=== PATIENT | male | born 1975 | race Caucasian/White ===

== ENCOUNTER 2017-07-03 11:28 | Inpatient (IN) | payer SELFPAY ==
[2017-07-03] MEDS ORDERED: Sodium Chloride 0.9% 1,000 ML IV ONE ×2 (11:51→14:25)
[2017-07-03] MEDS ORDERED: Ketorolac 30 MG/ML SDV IVPUSH ONE (11:54)
[2017-07-03] MEDS ORDERED: Ondansetron 4 MG/2 ML SDV IVPUSH ONE ×2 (11:54→12:57)
[2017-07-03 12:43] LABS: CHLORIDE,CL 107 mmol/L (98-110); SODIUM,NA 138 mmol/L (136-146)
[2017-07-03] MEDS ORDERED: methylPREDNISolone Sodium Succinate 125 MG/2 ML SDV IVPUSH ONE (12:57)
[2017-07-03] MEDS ORDERED: fentaNYL 100 MCG/2 ML SDV IVPUSH ONE (12:57)
--- NOTE | 2017-07-03 14:02 | CT ---
EXAMINATION: CT soft tissue neck without contrast HISTORY: Inability to swallow, dental issues COMPARISON: None TECHNIQUE: Axial CT images obtained through the neck without contrast. Coronal and sagittal reconstr uctions obtained. The patient had a GFR of 20.0. FINDINGS: There is extensive soft tissue prominence along the left aspect of the oropharynx. There i s deviation of the upper airway and notable mass effect along the left aspect of the oropharynx and less so the inferior nasopharynx and superior hypopharynx. The soft tissue prominence appears to ext end from the right mandibular region with a vague 3.2 x 2.3 cm collection just deep to the angle of the mandible. Periapical lucencies are noted within the adjacent maxillary and mandibular molars. Th ere is mild stranding along the left aspect of the face. Mildly enlarged level 1 and level 2 nodes a re noted measuring up to 1.4 cm. The submandibular and parotid glands are otherwise unremarkable. Th e thyroid appears normal. The lung apices are clear. Visualized osseous structures appear normal. Th e visualized paranasal sinuses and mastoid air cells are grossly clear. The orbits and globes are sy mmetric. IMPRESSION: 1. Probable large submandibular abscess likely originating from periapical lucencies within the left maxilla and mandibular molars. However the exact margins of the abscess is difficult to appreciate without contrast. 2. There is prominent mass effect on the oropharynx and airway. 3. Mild left cervical lymphadenopathy, likely reactive.
[2017-07-03] MEDS ORDERED: Piperacillin/Tazobactam 4.5 GM in Sodium Chloride 0.9% 100 ML IV ONE (14:25)
--- NOTE | 2017-07-03 14:58 | EDM.PDOC ---
<Devin Moser - Last Filed: 07/03/17 16:17> ED HPI GENERAL MEDICAL PROBLEM - General Chief Complaint: ENT Problem Stated Complaint: SOLLOWEN THROAT Time Seen by Provider: 07/03/17 12:00 Source of Information: Reports: Patient History Limitations: Reports: No Limitations - History of Present Illness INITIAL COMMENTS - FREE TEXT/NARRATIVE: History of present illness: 42-year-old male presenting with complaints of oral pain inability to swallow. Patient indicates he has known dental problem with anabiotic speak and swallow them indicates he has not been able to eat or drink since yesterday afternoon. Patient is not drooling and he is fully verbal with a non-muffled voice while describing his history. Review of systems: As per history of present illness and below otherwise all systems reviewed and negative. Past medical history: As per history of present illness and as reviewed below otherwise noncontributory. Surgical history: As per history of present illness and as reviewed below otherwise noncontributory. Social history: No reported history of drug or alcohol abuse. Family history: As per history of present illness and as reviewed below otherwise noncontributory. Physical exam: HEENT: Left-sided neck and face with some swelling and pain down into the neck, normocephalic, pupils reactive, negative for conjunctival pallor or scleral icterus, mucous membranes moist, throat clear, neck supple, nontender, trachea midline. Lungs: Clear to auscultation, breath sounds equal bilaterally, chest nontender. Heart: S1S2, regular, negative for clicks, rubs, or JVD. Abdomen: Soft, nondistended, nontender. Negative for masses or hepatosplenomegaly. Negative for costovertebral tenderness. Pelvis: Stable nontender. Genitourinary: Deferred. Rectal: Deferred. Extremities: Atraumatic, negative for cords or calf pain. Neurovascular unremarkable. Neuro: Awake, alert, oriented. Cranial nerves II through XII unremarkable. Cerebellum unremarkable. Motor and sensory unremarkable throughout. Exam nonfocal. Patient cannot open mouth wide patient cannot tolerate by mouth intake See Dr. Hahn's consult note as she saw patient in ER and was unable to aspirate any infection. CMP repeated for evaluation of renal status for potential CT with contrast Diagnostics: [cbc,cmp, lactate, ct] Therapeutics: [IV fluids, Zosyn, Zofran, Dilaudid, soluMedrol ] Impression: [Mandibular abscess with dehydration] Plan: [Consult Dr. Hahn, admit] Definitive disposition and diagnosis as appropriate pending reevaluation and review of above. throat Pain Score (Numeric/FACES): 8 - Related Data Allergies Allergy/AdvReac Type Severity Reaction Status Date / Time morphine Allergy Itching Verified 07/03/17 11:57 Home Meds: Home Meds Acetaminophen/HYDROcodone [[place] 325-7.5 MG] 1 tab PO Q4HR PRN 07/03/17 [History ] Cephalexin 500 mg PO TID 07/03/17 [History] Past Medical History - Past Health History Medical/Surgical History: Denies Medical/Surgical History Social & Family History - Family History Family Medical History: Noncontributory - Tobacco Use Smoking Status *Q: Current Every Day Smoker Years of Tobacco use: 30 Packs/Tins Daily: 1 - Recreational Drug Use Recreational Drug Use: No ED ROS ENT - Review of Systems Review Of Systems: See Below (See history of present illness) ED EXAM, ENT - Physical Exam Exam: See Below (History of present illness) Course - Vital Signs Last Recorded V/S: Last Vital Signs Temp 36.4 C 07/03/17 11:41 Pulse 96 07/03/17 15:56 Resp 14 07/03/17 15:56 BP 126/68 07/03/17 15:56 Pulse Ox 97 07/03/17 15:56 - Orders/Labs/Meds Orders: Medication Orders Acetaminophen (Tylenol) 650 mg PO Q4H PRN PRN Reason: Pain (Mild 1-3)/fever Enoxaparin Sodium (Lovenox) 40 mg SUBCUT DAILY [facility] Last Admin: 07/03/17 16:55 Dose: 40 mg Hydromorphone HCl (Dilaudid) 1 mg IVPUSH Q2H PRN PRN Reason: Pain (severe 7-10) Sodium Chloride (Normal Saline) 1,000 mls @ 125 mls/hr IV ASDIRECTED [facility] Clindamycin Phosphate 600 mg/ (Premix) 50 mls @ 100 mls/hr IV Q6H [facility] Last Admin: 07/03/17 16:53 Dose: 100 mls/hr Ceftriaxone Sodium/Dextrose 1 (gm/ Premix) 50 mls @ 100 mls/hr IV Q24H [facility] Ondansetron HCl (Zofran) 4 mg IVPUSH Q4H PRN PRN Reason: Nausea Labs: Laboratory Tests 07/03/17 07/03/17 07/03/17 Range/Units 12:17 12:17 13:08 WBC 19.04 H (4.0-11.0) K/uL RBC 4.48 L (4.50-5.90) M/uL Hgb 15.5 (13.0-17.0) g/dL Hct 44.1 (38.0-50.0) % MCV 98.4 H (80.0-98.0) fL MCH 34.6 H (27.0-32.0) pg MCHC 35.1 (31.0-37.0) g/dL RDW Std Deviation 47.1 (28.0-62.0) fl RDW Coeff of Pratima 13 (11.0-15.0) % Plt Count 280 (150-400) K/uL MPV 9.60 (7.40-12.00) fL Neut % (Auto) 83.0 H (48.0-80.0) % Lymph % (Auto) 6.4 L (16.0-40.0) % [place] % (Auto) 10.5 (0.0-15.0) % Eos % (Auto) 0.0 (0.0-7.0) % Baso % (Auto) 0.1 (0.0-1.5) % Neut # (Auto) 15.8 H (1.4-5.7) K/uL Lymph # (Auto) 1.2 (0.6-2.4) K/uL [place] # (Auto) 2.0 H (0.0-0.8) K/uL Eos # (Auto) 0.0 (0.0-0.7) K/uL Baso # (Auto) 0.0 (0.0-0.1) K/uL Nucleated RBC % 0.0 /100WBC Nucleated RBCs # 0 K/uL Lactate 0.9 (0.20-2.00) mmol/L Sodium 138 (136-146) mmol/L Potassium 3.7 (3.5-5.1) mmol/L Chloride 107 (98-110) mmol/L Carbon Dioxide 15 L (21-31) mmol/L BUN 31 H (6.0-23.0) mg/dL Creatinine 3.4 H (0.6-1.5) mg/dL Est Cr Clr Drug Dosing TNP Estimated GFR (MDRD) 20.0 ml/min Glucose 86 (60-110) mg/dL Calcium 8.0 L (8.8-10.8) mg/dL Total Bilirubin 0.2 (0.1-1.5) mg/dL AST 17 (5-40) IU/L ALT 15 (8-54) IU/L Alkaline Phosphatase 89 (40-150) Total Protein 7.1 (6.0-8.0) g/dL Albumin 3.4 L (3.5-5.0) g/dL Globulin 3.7 H (2.0-3.5) g/dL Albumin/Globulin Ratio 0.9 L (1.3-2.8) Meds: Medications Generic Name Dose Route Start Last Admin Trade Name Freq PRN Reason Stop Dose Admin Acetaminophen 650 mg 07/03/17 16:11 Tylenol PO Q4H PRN Pain (Mild 1-3)/fever Enoxaparin Sodium 40 mg 07/03/17 16:15 07/03/17 16:55 Lovenox SUBCUT 40 mg DAILY [facility] Administration Hydromorphone HCl 1 mg 07/03/17 16:11 Dilaudid IVPUSH Q2H PRN Pain (severe 7-10) Sodium Chloride 1,000 mls @ 125 mls/hr 07/03/17 16:15 Normal Saline IV ASDIRECTED [facility] Clindamycin Phosphate 600 mg/ 50 mls @ 100 mls/hr 07/03/17 16:15 07/03/17 16: 53 Premix IV 100 mls/hr Q6H [facility] Administration Ceftriaxone Sodium/Dextrose 1 50 mls @ 100 mls/hr 07/03/17 16:15 gm/ Premix IV Q24H [facility] Ondansetron HCl 4 mg 07/03/17 16:11 Zofran IVPUSH Q4H PRN Nausea Discontinued Medications Generic Name Dose Route Start Last Admin Trade Name Freq PRN Reason Stop Dose Admin Fentanyl 50 mcg 07/03/17 12:57 07/03/17 13:13 Sublimaze IVPUSH 07/03/17 12:58 50 mcg ONETIME ONE Administration Hydromorphone HCl 1 mg 07/03/17 15:43 07/03/17 15:52 Dilaudid IVPUSH 07/03/17 15:44 1 mg ONETIME ONE Administration Sodium Chloride 1,000 mls @ 999 mls/hr 07/03/17 11:51 07/03/17 12:09 Normal Saline IV 07/03/17 12:51 999 mls/hr .Bolus ONE Administration Piperacillin Sod/Tazobactam 100 mls @ 100 mls/hr 07/03/17 14:25 07/03/17 14: 31 Sod 4.5 gm/ Sodium Chloride IV 07/03/17 15:24 100 mls/hr ONETIME ONE Administration Sodium Chloride 1,000 mls @ 999 mls/hr 07/03/17 14:25 07/03/17 14:32 Normal Saline IV 07/03/17 15:25 999 mls/hr STAT ONE Administration Metronidazole 500 mg/ Premix 100 mls @ 100 mls/hr 07/03/17 18:00 IV QID [facility] Ketorolac Tromethamine 30 mg 07/03/17 11:54 07/03/17 12:10 Toradol IVPUSH 07/03/17 11:55 30 mg ONETIME ONE Administration Methylprednisolone Sodium Succinate 125 mg 07/03/17 12:57 07/03/17 13:17 Solu-Medrol IVPUSH 07/03/17 12:58 125 mg ONETIME ONE Administration Ondansetron HCl 8 mg 07/03/17 11:54 07/03/17 12:09 Zofran IVPUSH 07/03/17 11:55 8 mg ONETIME ONE Administration Ondansetron HCl 4 mg 07/03/17 12:57 07/03/17 13:15 Zofran IVPUSH 07/03/17 12:58 4 mg ONETIME ONE Administration Departure - Departure Time of Disposition: 16:25 Disposition: Admitted As Inpatient 66 Condition: Good Clinical Impression: Oral abscess - Discharge Information <Karoline Orr - Last Filed: 07/03/17 17:02> ED HPI GENERAL MEDICAL PROBLEM - History of Present Illness INITIAL COMMENTS - FREE TEXT/NARRATIVE: Please note that Dr. Hahn was contacted see the patient in the ER and she felt that the patient should be admitted but to the hospitalist service with her as consult. She also requested that we repeat the labs after IV hydration as she feels that if the patient is not improving he will need a CT scan with contrast. This information was translated to Dr. Avilez by me. Repeat BMP was ordered and will be checked on the floor.
[2017-07-03] MEDS ORDERED: HYDROmorphone 2 MG/ML Syringe IVPUSH ONE (15:43)
[2017-07-03] MEDS ORDERED: Acetaminophen 325 MG Tab PO PRN (16:11)
[2017-07-03] MEDS ORDERED: Ondansetron 4 MG/2 ML SDV IVPUSH PRN (16:11)
[2017-07-03] MEDS: Clindamycin Phosphate in D5W 600 MG in Premix Bag 50 BAG IV SCH ×4 (16:53→21:24)
[2017-07-03] MEDS: Enoxaparin 40 MG/0.4 ML Syringe SUBCUT SCH (16:55)
[2017-07-03] MEDS: Sodium Chloride 0.9% 1,000 ML IV SCH ×2 (17:00→18:55)
--- NOTE | 2017-07-03 17:07 | PCM.CONS ---
H&P History of Present Illness - General Date of Service: 07/03/17 Admit Problem/Dx: Admission Diagnosis/Problem Admission Diagnosis/Problem Neck infection - History of Present Illness Initial Comments - Free Text/Narative: Difficulty swllowing - 1d Difficulty mouth opening - 1 d HPI Patient presented to ER with worsening odynophagia, dysphagia and trismus since earlier today. Over the last 1 week he has developed a left lower dental pain for which he consulted a dentist yesterday. He was prescribed oral antibiotics to resolve inflammation prior to dental extraction next week. Woke today with the above symptoms. He has not been able to swallow his own saliva, voice is muffled. Does Not report any shortness of breath or breathing difficulties. He also reports pain on neck movements. Denies fever. Denies headaches. No history of upper respiratory tract infection. throat Pain Score (Numeric/FACES): 8 - Related Data Allergies/Adverse Reactions: Allergies Allergy/AdvReac Type Severity Reaction Status Date / Time morphine Allergy Itching Verified 07/03/17 11:57 Home Medications: Home Meds Acetaminophen/HYDROcodone [[place] 325-7.5 MG] 1 tab PO Q4HR PRN 07/03/17 [History ] Cephalexin 500 mg PO TID 07/03/17 [History] Past Medical History - Past Health History Medical/Surgical History: Denies Medical/Surgical History Social & Family History - Family History Family Medical History: Noncontributory - Tobacco Use Smoking Status *Q: Current Every Day Smoker Years of Tobacco use: 30 Packs/Tins Daily: 1 - Recreational Drug Use Recreational Drug Use: No H&P Review of Systems - Review of Systems: Review Of Systems: See Below General: Reports: Fatigue HEENT: Reports: Sore Throat Pulmonary: Reports: No Symptoms Cardiovascular: Reports: No Symptoms Gastrointestinal: Reports: No Symptoms Skin: Reports: No Symptoms Psychiatric: Reports: No Symptoms Neurological: Reports: No Symptoms Hematologic/Lymphatic: Reports: No Symptoms Exam - Exam Exam: See Below - Vital Signs Vital Signs: Last Vital Signs Temp 36.4 C 07/03/17 11:41 Pulse 96 07/03/17 15:56 Resp 14 07/03/17 15:56 BP 126/68 07/03/17 15:56 Pulse Ox 97 07/03/17 15:56 Weight: 85.7 kg - Exam General: Alert, Oriented, Cooperative Neck: Other Lungs: Clear to Auscultation Cardiovascular: Regular Rate, Regular Rhythm Skin: Warm, Dry, Intact Neuro Extensive - Mental Status: Alert, Oriented x3, Normal Mood/Affect Neuro Extensive - Motor, Sensory, Reflexes: CN II-XII Intact Physical Exam Comments:: Examination: Trismus = ++ Oral cavitymultiple carious teeth especially the left lower third molar. Gingivitis plus plus. Floor of mouth normal._Bit. Oropharynx: Left peritonsillar edema/bulge present. Posterior pharyngeal wall appears clear. Nose: Normal Ears: Bilateral tympanic membranes intact and middle ear clear Neck: Range of movements restricted by pain. Submental induration present. No fluctuation. Left angle of mandible tenderness present. Some induration also present. Unable to palpate any lymph nodes. Overlying skin in this region is also hyperemic. Remainder of the neck is normal. Trachea is midline. - Patient Data Result Diagrams: 07/03/17 12:17 07/03/17 12:17 Imaging Impressions Last 24 hrs: CT neck - wthout contrast - reviewed by me an also discussed with the Radiologist - ? Phlegmon / developing abscess in the Left masseter space / edema off the masseter muscle with adjacent fat stranding off the masseter space. Hard to further define due to lack of contrast. Consult PN Assessment/Plan (1) Dental caries SNOMED Code(s): 78441928 Code(s): K02.9 - DENTAL CARIES, UNSPECIFIED Current Visit: Yes (2) Gingivitis SNOMED Code(s): 90563007 Code(s): K05.10 - CHRONIC GINGIVITIS, PLAQUE INDUCED Current Visit: Yes (3) Cellulitis of neck SNOMED Code(s): 89278688 Code(s): L03.221 - CELLULITIS OF NECK Current Visit: Yes (4) Cellulitis of parapharyngeal space SNOMED Code(s): 766075022 Code(s): J39.0 - RETROPHARYNGEAL AND PARAPHARYNGEAL ABSCESS Current Visit: Yes Problem List Initiated/Reviewed/Updated: Yes Plan: - For IV clindamycin and Ceftriaxone. - IV fluids and analgesia. - For aspiration of left peritonsillar space - see separate procedure note - If his condition deteriorates to repeat CT, scan of neck / face with contrast after adequate rehydration / following the appropriate protocol to better help delineate the extent of an nature of infection. - To be admitted under hospitalist for observation. Case was discussed with the resident. - Review PRN
--- NOTE | 2017-07-03 17:22 | PCM.PRNOTE ---
- Free Text/Narrative Note: Aspiration of the left peritonsillar space A verbal consent was obtained. Surface anesthesia was obtained with 20% benzocaine spray. Subsequently 1 mail off 2% lidocaine with 1 end 100,000 epinephrine was injected all the area of maximal bulge left peritonsillar space. An 18-gauge needle was used to aspirate - no purulence. This concluded the procedure. Hemostasis was ensured. The patient was instructed not to eat or drink anything for 45 minutes post procedure.
--- NOTE | 2017-07-03 17:42 | PCM.HP ---
<Osman Avilez - Last Filed: 07/03/17 17:37> H&P History of Present Illness - General Date of Service: 07/03/17 Admit Problem/Dx: Admission Diagnosis/Problem Admission Diagnosis/Problem Neck infection Source of Information: Patient History Limitations: Reports: No Limitations - History of Present Illness Initial Comments - Free Text/Narative: 42-year-old male is being admitted with a submandibular abscess. Patient states that he began to notice some swelling on the lower portion of his left jaw approximately one week ago. The swelling has gotten worse and this morning he woke up with increased swelling under his chin down into his throat. He states that the site of swelling is extremely painful rating it as 8/10. He has been afebrile but notes that he is finding it difficult to swallow and feels as though it is harder to breathe. Patient has never had these types of symptoms in the past. He was placed on Keflex and Albin yesterday and states he took 5 tablets of Keflex and that the swelling does not seem to be improved. Patient states that he has not had much oral intake over the last 2 days secondary to the increased swelling and pain with swallowing. Patient denies any other acute concerns including headaches, dizziness, chest pain, palpitations, nausea, vomiting, constipation, diarrhea, abdominal pain, numbness/tingling/weakness in the upper and lower extremities bilaterally. He does have some pain around the left ear but denies any tinnitus. ER course: Patient received a dose of Zosyn while in the emergency room and a 2 L bolus of IV fluids. He was also given a one-time dose of IV Solu-Medrol. Dr. Hahn, ENT , saw the patient and attempted to aspirate the abscess but was only able to obtain blood. Patient did have a soft tissue neck CT which showed a probable large submandibular abscess originating from the left maxilla and mandibular molars. It also showed a prominent mass effect on the oropharynx and airway. There is mild left cervical lymphadenopathy which is most likely reactive. Patient also received a single dose of Dilaudid while in the emergency room for pain relief. Patient does not require supplemental O2 while in the emergency room. throat Pain Score (Numeric/FACES): 8 - Related Data Allergies/Adverse Reactions: Allergies Allergy/AdvReac Type Severity Reaction Status Date / Time morphine Allergy Itching Verified 07/03/17 11:57 Home Medications: Home Meds Acetaminophen/HYDROcodone [Albin 325-7.5 MG] 1 tab PO Q4HR PRN 07/03/17 [History ] Cephalexin 500 mg PO TID 07/03/17 [History] Past Medical History - Past Health History Medical/Surgical History: Denies Medical/Surgical History Social & Family History - Family History Family Medical History: Noncontributory - Tobacco Use Smoking Status *Q: Current Every Day Smoker Years of Tobacco use: 30 Packs/Tins Daily: 1 Used Tobacco, but Quit: No Second Hand Smoke Exposure: Yes - Caffeine Use Caffeine Use: Reports: Coffee, Energy Drinks, Soda, Tea - Alcohol Use Days Per Week of Alcohol Use: 2 Number of Drinks Per Day: 10 Total Drinks Per Week: 20 Date of Last Drink: 06/28/17 - Recreational Drug Use Recreational Drug Use: No H&P Review of Systems - Review of Systems: Review Of Systems: See Below General: Reports: No Symptoms HEENT: Reports: Dysphasia, Sore Throat, Other (Difficulty swallowing. Swelling noted at the lower portion of the left mandible and under the chin down into the throat.) Pulmonary: Reports: No Symptoms Cardiovascular: Reports: No Symptoms Gastrointestinal: Reports: No Symptoms Genitourinary: Reports: No Symptoms Musculoskeletal: Reports: No Symptoms Skin: Reports: No Symptoms Psychiatric: Reports: No Symptoms Neurological: Reports: No Symptoms Hematologic/Lymphatic: Reports: No Symptoms Immunologic: Reports: No Symptoms Exam - Exam Exam: See Below - Vital Signs Vital Signs: Last Vital Signs Temp 97 F 07/03/17 16:11 Pulse 95 07/03/17 16:11 Resp 18 07/03/17 16:11 BP 132/74 07/03/17 16:11 Pulse Ox 94 L 07/03/17 16:11 Weight: 85.7 kg - Exam Quality Assessment: DVT Prophylaxis (scds, Lovenox) General: Alert, Oriented, Cooperative, Mild Distress HEENT: Conjunctiva Clear, Hearing Intact, Other (Difficult to observe the posterior oropharynx as the patient finds it extremity painful to open his mouth. He does have quite a bit of saliva accumulating in the oral cavity.) Neck: Supple, Trachea Midline, Other (Patient does have noticeable swelling just inferior to the left mandible and just under the chin down into the neck. There is extreme tenderness with palpation. No fluctuance is appreciated. These areas are slightly warm to palpation.) Lungs: Clear to Auscultation, Normal Respiratory Effort Cardiovascular: Regular Rate, Regular Rhythm Extremities: Normal Inspection, Normal Range of Motion, Non-Tender, No Pedal Edema, Normal Capillary Refill Peripheral Pulses: 2+: Radial (L), Radial (R), Posterior Tibial (L), Posterior Tibial (R) Skin: Warm, Dry, Intact Neuro Extensive - Mental Status: Alert, Oriented x3, Normal Mood/Affect, Normal Cognition Neuro Extensive - Motor, Sensory, Reflexes: Normal Reflexes Psychiatric: Alert, Normal Affect, Normal Mood - Patient Data Lab Results Last 24 hrs: Laboratory Results - last 24 hr 07/03/17 Range/Units 16:38 Sodium 138 (136-146) mmol/L Potassium 3.8 (3.5-5.1) mmol/L Chloride 110 (98-110) mmol/L Carbon Dioxide 12 L (21-31) mmol/L BUN 33 H (6.0-23.0) mg/dL Creatinine 2.8 H (0.6-1.5) mg/dL Est Cr Clr Drug Dosing 35.49 mL/min Estimated GFR (MDRD) 25.0 ml/min Glucose 105 (60-110) mg/dL Calcium 8.4 L (8.8-10.8) mg/dL Total Bilirubin 0.3 (0.1-1.5) mg/dL AST 22 (5-40) IU/L ALT 16 (8-54) IU/L Alkaline Phosphatase 92 (40-150) Total Protein 7.5 (6.0-8.0) g/dL Albumin 3.5 (3.5-5.0) g/dL Globulin 4.0 H (2.0-3.5) g/dL Albumin/Globulin Ratio 0.9 L (1.3-2.8) Result Diagrams: 07/03/17 12:17 07/03/17 16:38 *Q Meaningful Use (ADM) - VTE *Q VTE Criteria *Q: - Stroke *Q Stroke Criteria *Q: - AMI *Q AMI Criteria *Q: - Problem List (1) Submandibular abscess SNOMED Code(s): 56682910 ICD Code: K12.2 - CELLULITIS AND ABSCESS OF MOUTH Status: Acute Current Visit: Yes (2) Acute renal injury due to hypovolemia SNOMED Code(s): 478857179 ICD Code: N17.9 - ACUTE KIDNEY FAILURE, UNSPECIFIED; E86.1 - HYPOVOLEMIA Status: Acute Current Visit: Yes Problem List Initiated/Reviewed/Updated: Yes Orders Last 24hrs: Active Orders 24 hr Category Date Time Status Patient Status [ADT] Routine ADT 07/03/17 16:11 Active Antiembolic Devices [RC] PER UNIT ROUTINE Care 07/03/17 16:18 Active Height and Weight [RC] DAILY Care 07/03/17 16:11 Active Intake and Output [RC] Q12H Care 07/03/17 16:12 Active Notify Provider Vital Signs [RC] ASDIRECTED Care 07/03/17 16:12 Active Oxygen Therapy [RC] PRN Care 07/03/17 16:11 Active Pulse Oximetry [RC] CONTINUOUS Care 07/03/17 16:12 Active Up With Assistance [RC] ASDIRECTED Care 07/03/17 16:11 Active VTE/DVT Education [RC] PER UNIT ROUTINE Care 07/03/17 16:11 Active Vital Signs [RC] Q4H Care 07/03/17 16:11 Active Regular Diet [DIET] Diet 07/03/17 Dinner Active BASIC METABOLIC PANEL,BMP [CHEM] AM Lab 07/04/17 05:11 Ordered BASIC METABOLIC PANEL,BMP [CHEM] AM Lab 07/05/17 05:11 Ordered BASIC METABOLIC PANEL,BMP [CHEM] AM Lab 07/06/17 05:11 Ordered CBC WITH AUTO DIFF [HEME] AM Lab 07/04/17 05:11 Ordered CBC WITH AUTO DIFF [HEME] AM Lab 07/05/17 05:11 Ordered CBC WITH AUTO DIFF [HEME] AM Lab 07/06/17 05:11 Ordered CULTURE BLOOD [BC] Stat Lab 07/03/17 16:49 Received Acetaminophen [Tylenol] Med 07/03/17 16:11 Active 650 mg PO Q4H PRN Clindamycin Phosphate in D5W [Cleocin in D5W] 600 mg Med 07/03/17 16:15 Active Premix Bag 50 bag IV Q6H Enoxaparin [Lovenox] Med 07/03/17 16:15 Active 40 mg SUBCUT DAILY HYDROmorphone [Dilaudid] Med 07/03/17 16:11 Active 1 mg IVPUSH Q2H PRN Ondansetron [Zofran] Med 07/03/17 16:11 Active 4 mg IVPUSH Q4H PRN Sodium Chloride 0.9% [Normal Saline] 1,000 ml Med 07/03/17 16:15 Active IV ASDIRECTED cefTRIAXone [Rocephin in Dextrose,Iso-Osm 1 GM/50 ML] 1 Med 07/03/17 16:15 Active gm Premix Bag 1 bag IV Q24H Sequential Compression Device [OM.PC] Per Unit Routine Oth 07/03/17 16:13 Ordered Resuscitation Status Routine Resus Stat 07/03/17 16:11 Ordered Medication Orders Acetaminophen (Tylenol) 650 mg PO Q4H PRN PRN Reason: Pain (Mild 1-3)/fever Enoxaparin Sodium (Lovenox) 40 mg SUBCUT DAILY [facility] Last Admin: 07/03/17 16:55 Dose: 40 mg Hydromorphone HCl (Dilaudid) 1 mg IVPUSH Q2H PRN PRN Reason: Pain (severe 7-10) Sodium Chloride (Normal Saline) 1,000 mls @ 125 mls/hr IV ASDIRECTED ODESSA Clindamycin Phosphate 600 mg/ (Premix) 50 mls @ 100 mls/hr IV Q6H [facility] Last Admin: 07/03/17 16:53 Dose: 100 mls/hr Ceftriaxone Sodium/Dextrose 1 (gm/ Premix) 50 mls @ 100 mls/hr IV Q24H ODESSA Ondansetron HCl (Zofran) 4 mg IVPUSH Q4H PRN PRN Reason: Nausea Assessment/Plan Comment:: 42-year-old male admitted with a left-sided submandibular abscess. #1. Submandibular mandibular abscess: -Dr. Hahn, ENT, attempted to aspirate the abscess but was only able to aspirate blood. She has been consulted on the case and will follow the patient throughout admission. -Patient started on IV clindamycin and IV Rocephin. Patient will most likely need a few days of IV antibiotics prior to discharge. -IV Dilaudid available for pain relief. -Patient maintained on a regular diet and will advance as tolerated starting with clear liquids. -Continuous pulse ox has been applied to the patient. -If swelling seems the same in the morning we can consider giving the patient an IV dose of Cipro. #2. Acute kidney injury secondary to dehydration: -Patient is a poor oral intake over the last few days. He'll be started on normal saline at 125 cc/hour. Discharge: 2-4 days pending improvement. <Obed Thomson - Last Filed: 07/03/17 19:37> H&P History of Present Illness - General Admit Problem/Dx: Admission Diagnosis/Problem Admission Diagnosis/Problem Neck infection Exam - Vital Signs Vital Signs: Last Vital Signs Temp 36.1 C 07/03/17 16:11 Pulse 95 07/03/17 16:11 Resp 18 07/03/17 16:11 BP 132/74 07/03/17 16:11 Pulse Ox 94 L 07/03/17 16:11 - Patient Data Lab Results Last 24 hrs: Laboratory Results - last 24 hr 07/03/17 Range/Units 16:38 Sodium 138 (136-146) mmol/L Potassium 3.8 (3.5-5.1) mmol/L Chloride 110 (98-110) mmol/L Carbon Dioxide 12 L (21-31) mmol/L BUN 33 H (6.0-23.0) mg/dL Creatinine 2.8 H (0.6-1.5) mg/dL Est Cr Clr Drug Dosing 35.49 mL/min Estimated GFR (MDRD) 25.0 ml/min Glucose 105 (60-110) mg/dL Calcium 8.4 L (8.8-10.8) mg/dL Total Bilirubin 0.3 (0.1-1.5) mg/dL AST 22 (5-40) IU/L ALT 16 (8-54) IU/L Alkaline Phosphatase 92 (40-150) Total Protein 7.5 (6.0-8.0) g/dL Albumin 3.5 (3.5-5.0) g/dL Globulin 4.0 H (2.0-3.5) g/dL Albumin/Globulin Ratio 0.9 L (1.3-2.8) Result Diagrams: 07/03/17 12:17 07/03/17 16:38 *Q Meaningful Use (ADM) - VTE *Q VTE Criteria *Q: - Stroke *Q Stroke Criteria *Q: - AMI *Q AMI Criteria *Q: Orders Last 24hrs: Active Orders 24 hr Category Date Time Status Patient Status [ADT] Routine ADT 07/03/17 16:11 Active Antiembolic Devices [RC] PER UNIT ROUTINE Care 07/03/17 16:18 Active Height and Weight [RC] DAILY Care 07/03/17 16:11 Active Intake and Output [RC] Q12H Care 07/03/17 16:12 Active Notify Provider Vital Signs [RC] ASDIRECTED Care 07/03/17 16:12 Active Oxygen Therapy [RC] PRN Care 07/03/17 16:11 Active Pulse Oximetry [RC] CONTINUOUS Care 07/03/17 16:12 Inactive Up With Assistance [RC] ASDIRECTED Care 07/03/17 16:11 Active VTE/DVT Education [RC] PER UNIT ROUTINE Care 07/03/17 16:11 Active Vital Signs [RC] Q4H Care 07/03/17 16:11 Active Regular Diet [DIET] Diet 07/03/17 Dinner Active BASIC METABOLIC PANEL,BMP [CHEM] AM Lab 07/04/17 05:11 Ordered BASIC METABOLIC PANEL,BMP [CHEM] AM Lab 07/05/17 05:11 Ordered BASIC METABOLIC PANEL,BMP [CHEM] AM Lab 07/06/17 05:11 Ordered CBC WITH AUTO DIFF [HEME] AM Lab 07/04/17 05:11 Ordered CBC WITH AUTO DIFF [HEME] AM Lab 07/05/17 05:11 Ordered CBC WITH AUTO DIFF [HEME] AM Lab 07/06/17 05:11 Ordered CULTURE BLOOD [BC] Stat Lab 07/03/17 16:49 Received Acetaminophen [Tylenol] Med 07/03/17 16:11 Active 650 mg PO Q4H PRN Clindamycin Phosphate in D5W [Cleocin in D5W] 600 mg Med 07/03/17 16:15 Active Premix Bag 50 bag IV Q6H Enoxaparin [Lovenox] Med 07/03/17 16:15 Active 40 mg SUBCUT DAILY HYDROmorphone [Dilaudid] Med 07/03/17 16:11 Active 1 mg IVPUSH Q2H PRN Ondansetron [Zofran] Med 07/03/17 16:11 Active 4 mg IVPUSH Q4H PRN Sodium Chloride 0.9% [Normal Saline] 1,000 ml Med 07/03/17 16:15 Active IV ASDIRECTED cefTRIAXone [Rocephin in Dextrose,Iso-Osm 1 GM/50 ML] 1 Med 07/03/17 16:15 Active gm Premix Bag 1 bag IV Q24H Sequential Compression Device [OM.PC] Per Unit Routine Oth 07/03/17 16:13 Ordered Resuscitation Status Routine Resus Stat 07/03/17 16:11 Ordered Medication Orders Acetaminophen (Tylenol) 650 mg PO Q4H PRN PRN Reason: Pain (Mild 1-3)/fever Enoxaparin Sodium (Lovenox) 40 mg SUBCUT DAILY [facility] Last Admin: 07/03/17 16:55 Dose: 40 mg Hydromorphone HCl (Dilaudid) 1 mg IVPUSH Q2H PRN PRN Reason: Pain (severe 7-10) Sodium Chloride (Normal Saline) 1,000 mls @ 125 mls/hr IV ASDIRECTED [facility] Last Admin: 07/03/17 17:00 Dose: 125 mls/hr Clindamycin Phosphate 600 mg/ (Premix) 50 mls @ 100 mls/hr IV Q6H [facility] Last Admin: 07/03/17 16:53 Dose: 100 mls/hr Ceftriaxone Sodium/Dextrose 1 (gm/ Premix) 50 mls @ 100 mls/hr IV Q24H [facility] Last Admin: 07/03/17 18:38 Dose: 100 mls/hr Ondansetron HCl (Zofran) 4 mg IVPUSH Q4H PRN PRN Reason: Nausea - Free Text/Narrative Note: I have seen this patient, have reviewed his orders and lab results, and I concur with the care Dr. Avilez has given.
[2017-07-03] MEDS ORDERED: metroNIDAZOLE/Normal Saline 500 MG in Premix Bag 1 BAG IV SCH (18:00)
[2017-07-03] MEDS: cefTRIAXone 1 GM in Premix Bag 1 BAG IV SCH (18:38)
[2017-07-03] MEDS: HYDROmorphone 2 MG/ML Syringe IVPUSH PRN (21:21)
[2017-07-04] MEDS: Sodium Chloride 0.9% 1,000 ML IV SCH ×3 (02:30→20:19)
[2017-07-04] MEDS: Clindamycin Phosphate in D5W 600 MG in Premix Bag 50 BAG IV SCH ×10 (04:29→22:13)
[2017-07-04] MEDS: HYDROmorphone 2 MG/ML Syringe IVPUSH PRN ×6 (05:03→19:25)
[2017-07-04] MEDS: Enoxaparin 40 MG/0.4 ML Syringe SUBCUT SCH (09:55)
[2017-07-04] MEDS ORDERED: Pantoprazole 40 MG in Sodium Chloride 0.9% 10 ML IVPUSH ONE ×3 (10:14→11:30)
--- NOTE | 2017-07-04 10:51 | PCM.PN ---
<Osman Avilez - Last Filed: 07/04/17 10:52> - General Info Date of Service: 07/04/17 Admission Dx/Problem (Free Text): Admission Diagnosis/Problem Admission Diagnosis/Problem Neck infection Subjective Update: Patient is doing well this morning. He states that he is swallowing much easier and is able to tolerate clear liquids. He also notes that his breathing is much improved. He still notes swelling inferior to the left jaw line and underneath his chin but the area is not as warm to palpation. He also notes that he is able to breathe much easier. Pain is improved and he is requiring pain medications occasionally for pain relief. Patient does note that he has some GERD. He does not take anything for this. Patient denies any other acute concerns including headache, dizziness, chest pain, palpitations, shortness of breath wheezing, cough, abdominal pain, nausea vomiting, constipation, diarrhea. Functional Status: Reports: Pain Controlled, Tolerating Diet, Ambulating, Urinating - Patient Data Vitals - Most Recent: Last Vital Signs Temp 98.6 F 07/04/17 08:00 Pulse 85 07/04/17 08:00 Resp 16 07/04/17 08:00 BP 103/60 07/04/17 08:00 Pulse Ox 96 07/04/17 08:00 Weight - Most Recent: 85.7 kg I&O - Last 24 Hours: Intake & Output 07/03/17 07/04/17 07/04/17 22:59 06:59 14:59 Intake Total 1150 2268 Output Total 1500 Balance 1150 768 Lab Results Last 24 Hours: Laboratory Results - last 24 hr 07/03/17 07/04/17 07/04/17 Range/Units 16:38 06:00 06:00 WBC 20.78 H (4.0-11.0) K/uL RBC 4.06 L (4.50-5.90) M/uL Hgb 13.7 (13.0-17.0) g/dL Hct 39.1 (38.0-50.0) % MCV 96.3 (80.0-98.0) fL MCH 33.7 H (27.0-32.0) pg MCHC 35.0 (31.0-37.0) g/dL RDW Std Deviation 45.7 (28.0-62.0) fl RDW Coeff of Pratima 13 (11.0-15.0) % Plt Count 293 (150-400) K/uL MPV 9.50 (7.40-12.00) fL Neut % (Auto) 87.2 H (48.0-80.0) % Lymph % (Auto) 5.0 L (16.0-40.0) % [place] % (Auto) 7.7 (0.0-15.0) % Eos % (Auto) 0.0 (0.0-7.0) % Baso % (Auto) 0.1 (0.0-1.5) % Neut # (Auto) 18.1 H (1.4-5.7) K/uL Lymph # (Auto) 1.0 (0.6-2.4) K/uL [place] # (Auto) 1.6 H (0.0-0.8) K/uL Eos # (Auto) 0.0 (0.0-0.7) K/uL Baso # (Auto) 0.0 (0.0-0.1) K/uL Nucleated RBC % 0.0 /100WBC Nucleated RBCs # 0 K/uL Sodium 138 135 L (136-146) mmol/L Potassium 3.8 3.5 (3.5-5.1) mmol/L Chloride 110 109 (98-110) mmol/L Carbon Dioxide 12 L 16 L (21-31) mmol/L BUN 33 H 29 H (6.0-23.0) mg/dL Creatinine 2.8 H 1.9 H (0.6-1.5) mg/dL Est Cr Clr Drug Dosing 35.49 52.30 mL/min Estimated GFR (MDRD) 25.0 39.1 ml/min Glucose 105 107 (60-110) mg/dL Calcium 8.4 L 8.2 L (8.8-10.8) mg/dL Total Bilirubin 0.3 (0.1-1.5) mg/dL AST 22 (5-40) IU/L ALT 16 (8-54) IU/L Alkaline Phosphatase 92 (40-150) Total Protein 7.5 (6.0-8.0) g/dL Albumin 3.5 (3.5-5.0) g/dL Globulin 4.0 H (2.0-3.5) g/dL Albumin/Globulin Ratio 0.9 L (1.3-2.8) Med Orders - Current: Current Medications Acetaminophen (Tylenol) 650 mg PO Q4H PRN PRN Reason: Pain (Mild 1-3)/fever Enoxaparin Sodium (Lovenox) 40 mg SUBCUT DAILY [facility] Last Admin: 07/04/17 09:55 Dose: 40 mg Hydromorphone HCl (Dilaudid) 1 mg IVPUSH Q2H PRN PRN Reason: Pain (severe 7-10) Last Admin: 07/04/17 09:52 Dose: 1 mg Sodium Chloride (Normal Saline) 1,000 mls @ 125 mls/hr IV ASDIRECTED [facility] Last Admin: 07/04/17 09:55 Dose: 125 mls/hr Clindamycin Phosphate 600 mg/ (Premix) 50 mls @ 100 mls/hr IV Q6H [facility] Last Admin: 07/04/17 10:33 Dose: 100 mls/hr Ceftriaxone Sodium/Dextrose 1 (gm/ Premix) 50 mls @ 100 mls/hr IV Q24H [facility] Last Admin: 07/03/17 18:38 Dose: 100 mls/hr Pantoprazole Sodium 40 mg/ (Sodium Chloride) 10 mls @ 300 mls/hr IVPUSH DAILY [facility] Ondansetron HCl (Zofran) 4 mg IVPUSH Q4H PRN PRN Reason: Nausea Discontinued Medications Fentanyl (Sublimaze) 50 mcg IVPUSH ONETIME ONE Stop: 07/03/17 12:58 Last Admin: 07/03/17 13:13 Dose: 50 mcg Hydromorphone HCl (Dilaudid) 1 mg IVPUSH ONETIME ONE Stop: 07/03/17 15:44 Last Admin: 07/03/17 15:52 Dose: 1 mg Sodium Chloride (Normal Saline) 1,000 mls @ 999 mls/hr IV .Bolus ONE Stop: 07/03/17 12:51 Last Admin: 07/03/17 12:09 Dose: 999 mls/hr Piperacillin Sod/Tazobactam (Sod 4.5 gm/ Sodium Chloride) 100 mls @ 100 mls/hr IV ONETIME ONE Stop: 07/03/17 15:24 Last Admin: 07/03/17 14:31 Dose: 100 mls/hr Sodium Chloride (Normal Saline) 1,000 mls @ 999 mls/hr IV STAT ONE Stop: 07/03/17 15:25 Last Admin: 07/03/17 14:32 Dose: 999 mls/hr Metronidazole 500 mg/ Premix 100 mls @ 100 mls/hr IV QID ODESSA Pantoprazole Sodium 40 mg/ (Sodium Chloride) 10 mls @ 300 mls/hr IVPUSH NOW ONE Stop: 07/04/17 10:15 Pantoprazole Sodium 40 mg/ (Sodium Chloride) 10 mls @ 300 mls/hr IVPUSH NOW ONE Stop: 07/04/17 10:31 Ketorolac Tromethamine (Toradol) 30 mg IVPUSH ONETIME ONE Stop: 07/03/17 11:55 Last Admin: 07/03/17 12:10 Dose: 30 mg Methylprednisolone Sodium Succinate (Solu-Medrol) 125 mg IVPUSH ONETIME ONE Stop: 07/03/17 12:58 Last Admin: 07/03/17 13:17 Dose: 125 mg Ondansetron HCl (Zofran) 8 mg IVPUSH ONETIME ONE Stop: 07/03/17 11:55 Last Admin: 07/03/17 12:09 Dose: 8 mg Ondansetron HCl (Zofran) 4 mg IVPUSH ONETIME ONE Stop: 07/03/17 12:58 Last Admin: 07/03/17 13:15 Dose: 4 mg - Exam Quality Assessment: DVT Prophylaxis (Lovenox, sequential compression devices) General: Alert, Oriented, Cooperative, No Acute Distress HEENT: Other (Patient's voice is not as muffled this morning and he appears to be swallowing much easier.) Neck: Supple, Other (Area of swelling noted inferior to the left jawline and underneath the chin. The area is not as warm to palpation this morning and does not seem to be as swollen.) Lungs: Clear to Auscultation, Normal Respiratory Effort Cardiovascular: Regular Rate, Regular Rhythm GI/Abdominal Exam: Normal Bowel Sounds, Soft, Non-Tender, No Organomegaly, No Distention, No Abnormal Bruit, No Mass Extremities: Normal Inspection, Normal Range of Motion, Non-Tender, No Pedal Edema, Normal Capillary Refill Peripheral Pulses: 2+: Radial (L), Radial (R), Posterior Tibial (L), Posterior Tibial (R) Skin: Warm, Dry, Intact, Other (Area of swelling on the left side of the neck and underneath the chin does not appear as warm to palpation and not as erythematous.) Wound/Incisions: Healing Well Neurological: No New Focal Deficit Psy/Mental Status: Alert, Normal Affect, Normal Mood - Problem List & Annotations (1) Submandibular abscess SNOMED Code(s): 16791641 Code(s): K12.2 - CELLULITIS AND ABSCESS OF MOUTH Status: Acute Current Visit: Yes (2) Acute renal injury due to hypovolemia SNOMED Code(s): 067026965 Code(s): N17.9 - ACUTE KIDNEY FAILURE, UNSPECIFIED; E86.1 - HYPOVOLEMIA Status: Acute Current Visit: Yes - Problem List Review Problem List Initiated/Reviewed/Updated: Yes - My Orders Last 24 Hours: My Active Orders 07/03/17 16:11 Patient Status [ADT] Routine Height and Weight [RC] DAILY Oxygen Therapy [RC] PRN Up With Assistance [RC] ASDIRECTED VTE/DVT Education [RC] PER UNIT ROUTINE Vital Signs [RC] Q4H Acetaminophen [Tylenol] 650 mg PO Q4H PRN HYDROmorphone [Dilaudid] 1 mg IVPUSH Q2H PRN Ondansetron [Zofran] 4 mg IVPUSH Q4H PRN Resuscitation Status Routine 07/03/17 16:12 Intake and Output [RC] Q12H Notify Provider Vital Signs [RC] ASDIRECTED Pulse Oximetry [RC] CONTINUOUS 07/03/17 16:13 Sequential Compression Device [OM.PC] Per Unit Routine 07/03/17 16:15 Clindamycin Phosphate in D5W [Cleocin in D5W] 600 mg Premix Bag 50 bag IV Q6H Enoxaparin [Lovenox] 40 mg SUBCUT DAILY Sodium Chloride 0.9% [Normal Saline] 1,000 ml IV ASDIRECTED cefTRIAXone [Rocephin in Dextrose,Iso-Osm 1 GM/50 ML] 1 gm Premix Bag 1 bag IV Q24H 07/03/17 16:18 Antiembolic Devices [RC] PER UNIT ROUTINE 07/03/17 16:49 CULTURE BLOOD [BC] Stat 07/03/17 Dinner Regular Diet [DIET] 07/05/17 05:11 BASIC METABOLIC PANEL,BMP [CHEM] AM CBC WITH AUTO DIFF [HEME] AM 07/05/17 09:00 Pantoprazole [ProTONIX IV] 40 mg Sodium Chloride 0.9% [Normal Saline] 10 ml IVPUSH DAILY 07/06/17 05:11 BASIC METABOLIC PANEL,BMP [CHEM] AM CBC WITH AUTO DIFF [HEME] AM - Plan Plan:: 42-year-old male admitted with a left-sided submandibular abscess. #1. Submandibular mandibular abscess: -Dr. Hahn, ENT, we'll continue to follow the patient throughout admission. -Continue IV clindamycin and Rocephin. White blood cell count did increase slightly from 19,000-21,000. We'll get a repeat CBC in the morning. We do not want to get a head and neck CT with contrast as the patient has poor kidney function secondary to dehydration. If his kidney function improves and his white blood cell count continues to increase we can consider getting a CT. Clinically, the patient looks much better this morning. -IV Dilaudid available for pain relief. -Patient continue to advance his diet as tolerated. #2. Acute kidney injury secondary to dehydration: -BUN/creatinine are improving. Continue with normal saline at 125 cc/hour. Discharge: 2-4 days pending improvement. <Obed Thomson - Last Filed: 07/04/17 12:31> - Patient Data Vitals - Most Recent: Last Vital Signs Temp 37.0 C 07/04/17 08:00 Pulse 85 07/04/17 08:00 Resp 16 07/04/17 08:00 BP 103/60 07/04/17 08:00 Pulse Ox 96 07/04/17 08:00 I&O - Last 24 Hours: Intake & Output 07/03/17 07/04/17 07/04/17 22:59 06:59 14:59 Intake Total 1150 2268 Output Total 1500 Balance 1150 768 Lab Results Last 24 Hours: Laboratory Results - last 24 hr 07/03/17 07/04/17 07/04/17 Range/Units 16:38 06:00 06:00 WBC 20.78 H (4.0-11.0) K/uL RBC 4.06 L (4.50-5.90) M/uL Hgb 13.7 (13.0-17.0) g/dL Hct 39.1 (38.0-50.0) % MCV 96.3 (80.0-98.0) fL MCH 33.7 H (27.0-32.0) pg MCHC 35.0 (31.0-37.0) g/dL RDW Std Deviation 45.7 (28.0-62.0) fl RDW Coeff of Pratima 13 (11.0-15.0) % Plt Count 293 (150-400) K/uL MPV 9.50 (7.40-12.00) fL Neut % (Auto) 87.2 H (48.0-80.0) % Lymph % (Auto) 5.0 L (16.0-40.0) % [place] % (Auto) 7.7 (0.0-15.0) % Eos % (Auto) 0.0 (0.0-7.0) % Baso % (Auto) 0.1 (0.0-1.5) % Neut # (Auto) 18.1 H (1.4-5.7) K/uL Lymph # (Auto) 1.0 (0.6-2.4) K/uL [place] # (Auto) 1.6 H (0.0-0.8) K/uL Eos # (Auto) 0.0 (0.0-0.7) K/uL Baso # (Auto) 0.0 (0.0-0.1) K/uL Nucleated RBC % 0.0 /100WBC Nucleated RBCs # 0 K/uL Sodium 138 135 L (136-146) mmol/L Potassium 3.8 3.5 (3.5-5.1) mmol/L Chloride 110 109 (98-110) mmol/L Carbon Dioxide 12 L 16 L (21-31) mmol/L BUN 33 H 29 H (6.0-23.0) mg/dL Creatinine 2.8 H 1.9 H (0.6-1.5) mg/dL Est Cr Clr Drug Dosing 35.49 52.30 mL/min Estimated GFR (MDRD) 25.0 39.1 ml/min Glucose 105 107 (60-110) mg/dL Calcium 8.4 L 8.2 L (8.8-10.8) mg/dL Total Bilirubin 0.3 (0.1-1.5) mg/dL AST 22 (5-40) IU/L ALT 16 (8-54) IU/L Alkaline Phosphatase 92 (40-150) Total Protein 7.5 (6.0-8.0) g/dL Albumin 3.5 (3.5-5.0) g/dL Globulin 4.0 H (2.0-3.5) g/dL Albumin/Globulin Ratio 0.9 L (1.3-2.8) Med Orders - Current: Current Medications Acetaminophen (Tylenol) 650 mg PO Q4H PRN PRN Reason: Pain (Mild 1-3)/fever Enoxaparin Sodium (Lovenox) 40 mg SUBCUT DAILY [facility] Last Admin: 07/04/17 09:55 Dose: 40 mg Hydromorphone HCl (Dilaudid) 1 mg IVPUSH Q2H PRN PRN Reason: Pain (severe 7-10) Last Admin: 07/04/17 12:19 Dose: 1 mg Sodium Chloride (Normal Saline) 1,000 mls @ 125 mls/hr IV ASDIRECTED [facility] Last Admin: 07/04/17 09:55 Dose: 125 mls/hr Clindamycin Phosphate 600 mg/ (Premix) 50 mls @ 100 mls/hr IV Q6H [facility] Last Admin: 07/04/17 10:33 Dose: 100 mls/hr Ceftriaxone Sodium/Dextrose 1 (gm/ Premix) 50 mls @ 100 mls/hr IV Q24H [facility] Last Admin: 07/03/17 18:38 Dose: 100 mls/hr Pantoprazole Sodium 40 mg/ (Sodium Chloride) 10 mls @ 300 mls/hr IVPUSH DAILY [facility] Ondansetron HCl (Zofran) 4 mg IVPUSH Q4H PRN PRN Reason: Nausea Discontinued Medications Fentanyl (Sublimaze) 50 mcg IVPUSH ONETIME ONE Stop: 07/03/17 12:58 Last Admin: 07/03/17 13:13 Dose: 50 mcg Hydromorphone HCl (Dilaudid) 1 mg IVPUSH ONETIME ONE Stop: 07/03/17 15:44 Last Admin: 07/03/17 15:52 Dose: 1 mg Sodium Chloride (Normal Saline) 1,000 mls @ 999 mls/hr IV .Bolus ONE Stop: 07/03/17 12:51 Last Admin: 07/03/17 12:09 Dose: 999 mls/hr Piperacillin Sod/Tazobactam (Sod 4.5 gm/ Sodium Chloride) 100 mls @ 100 mls/hr IV ONETIME ONE Stop: 07/03/17 15:24 Last Admin: 07/03/17 14:31 Dose: 100 mls/hr Sodium Chloride (Normal Saline) 1,000 mls @ 999 mls/hr IV STAT ONE Stop: 07/03/17 15:25 Last Admin: 07/03/17 14:32 Dose: 999 mls/hr Metronidazole 500 mg/ Premix 100 mls @ 100 mls/hr IV QID ODESSA Pantoprazole Sodium 40 mg/ (Sodium Chloride) 10 mls @ 300 mls/hr IVPUSH NOW ONE Stop: 07/04/17 10:15 Last Admin: 07/04/17 11:24 Dose: Not Given Pantoprazole Sodium 40 mg/ (Sodium Chloride) 10 mls @ 300 mls/hr IVPUSH NOW ONE Stop: 07/04/17 10:31 Last Admin: 07/04/17 11:30 Dose: Not Given Pantoprazole Sodium 40 mg/ (Sodium Chloride) 10 mls @ 300 mls/hr IVPUSH NOW ONE Stop: 07/04/17 11:31 Last Admin: 07/04/17 11:29 Dose: 300 mls/hr Ketorolac Tromethamine (Toradol) 30 mg IVPUSH ONETIME ONE Stop: 07/03/17 11:55 Last Admin: 07/03/17 12:10 Dose: 30 mg Methylprednisolone Sodium Succinate (Solu-Medrol) 125 mg IVPUSH ONETIME ONE Stop: 07/03/17 12:58 Last Admin: 07/03/17 13:17 Dose: 125 mg Ondansetron HCl (Zofran) 8 mg IVPUSH ONETIME ONE Stop: 07/03/17 11:55 Last Admin: 07/03/17 12:09 Dose: 8 mg Ondansetron HCl (Zofran) 4 mg IVPUSH ONETIME ONE Stop: 07/03/17 12:58 Last Admin: 07/03/17 13:15 Dose: 4 mg - Free Text/Narrative Note: Dr. Thomson: I have examined this patient, looked at his data and have discussed his care with Dr. Avilez. I agree with the assessments and plan. Please note that the plan line saying "Dr Hahn ENT we'll" should be corrected to "Dr. Hahn ENT will"
[2017-07-04] MEDS: cefTRIAXone 1 GM in Premix Bag 1 BAG IV SCH (15:20)
[2017-07-04] MEDS ORDERED: methylPREDNISolone Sodium Succinate 125 MG/2 ML SDV IVPUSH ONE (16:11)
--- NOTE | 2017-07-04 18:49 | PCM.CONSN ---
- General Info Date of Service: 07/04/17 - Review of Systems Systems Review Comment:: Since yesterday - pain and external neck swelling improved ++ Mouth opening improved Neck movements improved No SOB; voice improved Is able to swallow semi solids - Patient Data Vitals - Most Recent: Last Vital Signs Temp 37.5 C 07/04/17 16:00 Pulse 91 07/04/17 16:00 Resp 16 07/04/17 16:00 BP 112/73 07/04/17 16:00 Pulse Ox 95 07/04/17 16:11 Weight - Most Recent: 87.407 kg I&O - Last 24 Hours: Intake & Output 07/04/17 07/04/17 07/04/17 06:59 14:59 22:59 Intake Total 2268 900 Output Total 1500 600 Balance 768 300 Lab Results Last 24 Hours: Laboratory Results - last 24 hr 07/04/17 07/04/17 Range/Units 06:00 06:00 WBC 20.78 H (4.0-11.0) K/uL RBC 4.06 L (4.50-5.90) M/uL Hgb 13.7 (13.0-17.0) g/dL Hct 39.1 (38.0-50.0) % MCV 96.3 (80.0-98.0) fL MCH 33.7 H (27.0-32.0) pg MCHC 35.0 (31.0-37.0) g/dL RDW Std Deviation 45.7 (28.0-62.0) fl RDW Coeff of Pratima 13 (11.0-15.0) % Plt Count 293 (150-400) K/uL MPV 9.50 (7.40-12.00) fL Neut % (Auto) 87.2 H (48.0-80.0) % Lymph % (Auto) 5.0 L (16.0-40.0) % [place] % (Auto) 7.7 (0.0-15.0) % Eos % (Auto) 0.0 (0.0-7.0) % Baso % (Auto) 0.1 (0.0-1.5) % Neut # (Auto) 18.1 H (1.4-5.7) K/uL Lymph # (Auto) 1.0 (0.6-2.4) K/uL [place] # (Auto) 1.6 H (0.0-0.8) K/uL Eos # (Auto) 0.0 (0.0-0.7) K/uL Baso # (Auto) 0.0 (0.0-0.1) K/uL Nucleated RBC % 0.0 /100WBC Nucleated RBCs # 0 K/uL Sodium 135 L (136-146) mmol/L Potassium 3.5 (3.5-5.1) mmol/L Chloride 109 (98-110) mmol/L Carbon Dioxide 16 L (21-31) mmol/L BUN 29 H (6.0-23.0) mg/dL Creatinine 1.9 H (0.6-1.5) mg/dL Est Cr Clr Drug Dosing 52.30 mL/min Estimated GFR (MDRD) 39.1 ml/min Glucose 107 (60-110) mg/dL Calcium 8.2 L (8.8-10.8) mg/dL Darshan Results Last 24 Hours: Microbiology 07/03/17 16:49 Aerobic Blood Culture - Preliminary Blood NO GROWTH AFTER 1 DAY Anaerobic Blood Culture - Preliminary NO GROWTH AFTER 1 DAY Med Orders - Current: Current Medications Acetaminophen (Tylenol) 650 mg PO Q4H PRN PRN Reason: Pain (Mild 1-3)/fever Enoxaparin Sodium (Lovenox) 40 mg SUBCUT DAILY [facility] Last Admin: 07/04/17 09:55 Dose: 40 mg Hydromorphone HCl (Dilaudid) 1 mg IVPUSH Q2H PRN PRN Reason: Pain (severe 7-10) Last Admin: 07/04/17 17:20 Dose: 1 mg Sodium Chloride (Normal Saline) 1,000 mls @ 125 mls/hr IV ASDIRECTED [facility] Last Admin: 07/04/17 09:55 Dose: 125 mls/hr Clindamycin Phosphate 600 mg/ (Premix) 50 mls @ 100 mls/hr IV Q6H [facility] Last Admin: 07/04/17 15:54 Dose: 100 mls/hr Ceftriaxone Sodium/Dextrose 1 (gm/ Premix) 50 mls @ 100 mls/hr IV Q24H [facility] Last Admin: 07/04/17 15:20 Dose: 100 mls/hr Pantoprazole Sodium 40 mg/ (Sodium Chloride) 10 mls @ 300 mls/hr IVPUSH DAILY [facility] Ondansetron HCl (Zofran) 4 mg IVPUSH Q4H PRN PRN Reason: Nausea Discontinued Medications Fentanyl (Sublimaze) 50 mcg IVPUSH ONETIME ONE Stop: 07/03/17 12:58 Last Admin: 07/03/17 13:13 Dose: 50 mcg Hydromorphone HCl (Dilaudid) 1 mg IVPUSH ONETIME ONE Stop: 07/03/17 15:44 Last Admin: 07/03/17 15:52 Dose: 1 mg Sodium Chloride (Normal Saline) 1,000 mls @ 999 mls/hr IV .Bolus ONE Stop: 07/03/17 12:51 Last Admin: 07/03/17 12:09 Dose: 999 mls/hr Piperacillin Sod/Tazobactam (Sod 4.5 gm/ Sodium Chloride) 100 mls @ 100 mls/hr IV ONETIME ONE Stop: 07/03/17 15:24 Last Admin: 07/03/17 14:31 Dose: 100 mls/hr Sodium Chloride (Normal Saline) 1,000 mls @ 999 mls/hr IV STAT ONE Stop: 07/03/17 15:25 Last Admin: 07/03/17 14:32 Dose: 999 mls/hr Metronidazole 500 mg/ Premix 100 mls @ 100 mls/hr IV QID [facility]DES[facility] Pantoprazole Sodium 40 mg/ (Sodium Chloride) 10 mls @ 300 mls/hr IVPUSH NOW ONE Stop: 07/04/17 10:15 Last Admin: 07/04/17 11:24 Dose: Not Given Pantoprazole Sodium 40 mg/ (Sodium Chloride) 10 mls @ 300 mls/hr IVPUSH NOW ONE Stop: 07/04/17 10:31 Last Admin: 07/04/17 11:30 Dose: Not Given Pantoprazole Sodium 40 mg/ (Sodium Chloride) 10 mls @ 300 mls/hr IVPUSH NOW ONE Stop: 07/04/17 11:31 Last Admin: 07/04/17 11:29 Dose: 300 mls/hr Ketorolac Tromethamine (Toradol) 30 mg IVPUSH ONETIME ONE Stop: 07/03/17 11:55 Last Admin: 07/03/17 12:10 Dose: 30 mg Methylprednisolone Sodium Succinate (Solu-Medrol) 125 mg IVPUSH ONETIME ONE Stop: 07/03/17 12:58 Last Admin: 07/03/17 13:17 Dose: 125 mg Methylprednisolone Sodium Succinate (Solu-Medrol) 125 mg IVPUSH ONETIME ONE Stop: 07/04/17 16:12 Last Admin: 07/04/17 16:27 Dose: 125 mg Ondansetron HCl (Zofran) 8 mg IVPUSH ONETIME ONE Stop: 07/03/17 11:55 Last Admin: 07/03/17 12:09 Dose: 8 mg Ondansetron HCl (Zofran) 4 mg IVPUSH ONETIME ONE Stop: 07/03/17 12:58 Last Admin: 07/03/17 13:15 Dose: 4 mg - Exam General: Alert, Oriented HEENT: Other Neck: Other Peripheral Pulses: 0: Posterior Tibial (R) Skin: Warm, Dry, Intact Psy/Mental Status: Alert, Normal Affect Physical Findings Comments:: Oral cavity - trismus + CArious teeth and gingivitis - as before L Peritonsillar swelling - improved; purulence from the aspiration site + Oropharynx - PPW - normal Neck- ROM normal and not painful Submental = minimal swelling; no induration; L angle of mandible - no induration; feels soft Consult PN Assessment/Plan POD#: 1 (1) Dental caries SNOMED Code(s): 27352067 Code(s): K02.9 - DENTAL CARIES, UNSPECIFIED Current Visit: Yes (2) Gingivitis SNOMED Code(s): 18923782 Code(s): K05.10 - CHRONIC GINGIVITIS, PLAQUE INDUCED Current Visit: Yes (3) Cellulitis of neck SNOMED Code(s): 30927461 Code(s): L03.221 - CELLULITIS OF NECK Current Visit: Yes (4) Cellulitis of parapharyngeal space SNOMED Code(s): 639287070 Code(s): J39.0 - RETROPHARYNGEAL AND PARAPHARYNGEAL ABSCESS Current Visit: Yes Problem List Initiated/Reviewed/Updated: Yes My Orders Last 24 Hours: A/P - L peritonsilllar abscess with dental caries and neck cellulitis Plan - Incision and drainage of L peritonsillar abscess - see separate procedure note from today) - Continue current treatment - Will benefit from further 24 hour course of IV antibiotics - L infected lower molar extraction by dentist
--- NOTE | 2017-07-04 18:51 | PCM.PRNOTE ---
- Free Text/Narrative Note: Incision and drainage of the left peritonsillar space A consent was obtained. Time out was performed. Surface anesthesia was obtained with 20% benzocaine spray. Subsequently 1 ml off 2% lidocaine with 1 in 100,000 epinephrine was injected all the area of maximal bulge left peritonsillar space. A 11 blade was used to make an incision which was dilated with a clamp. Minimal purulence was expressed. This concluded the procedure. Hemostasis was ensured. The patient was instructed not to eat or drink anything for 45 minutes post procedure.
[2017-07-05] MEDS: HYDROmorphone 2 MG/ML Syringe IVPUSH PRN ×3 (03:50→17:11)
[2017-07-05] MEDS: Clindamycin Phosphate in D5W 600 MG in Premix Bag 50 BAG IV SCH ×8 (03:55→21:16)
[2017-07-05] MEDS: Sodium Chloride 0.9% 1,000 ML IV SCH ×2 (05:26→14:01)
[2017-07-05 06:29] LABS: CHLORIDE,CL 110 mmol/L (98-110); SODIUM,NA 137 mmol/L (136-146)
[2017-07-05] MEDS: Pantoprazole 40 MG in Sodium Chloride 0.9% 10 ML IVPUSH SCH (08:36)
[2017-07-05] MEDS: Enoxaparin 40 MG/0.4 ML Syringe SUBCUT SCH (08:37)
[2017-07-05] MEDS ORDERED: traMADol 50 MG Tab PO PRN (13:54)
[2017-07-05] MEDS: cefTRIAXone 1 GM in Premix Bag 1 BAG IV SCH (16:34)
--- NOTE | 2017-07-05 17:54 | PCM.PN ---
[id number] Dx/Problem (Free Text): Aren has been doing better status post I&D and introduction of antibiotics. His WBC count has decreased since yesterday.he still having some throat swelling and pain but it does seem to be getting significantly better since previously. He is able to take by mouth without any difficulty at the present moment as such we will be switching his IV antibiotics over to by mouth by tomorrow provided that he does do better. denying headaches, febrile issues, nausea vomiting, diarrhea constipation, heart palpitations, shortness of breath , or any other systemic symptoms. - Review of Systems General: Reports: Weakness, Fatigue Pulmonary: Reports: No Symptoms Cardiovascular: Reports: No Symptoms Gastrointestinal: Reports: No Symptoms Skin: Reports: No Symptoms Neurological: Reports: No Symptoms - Patient Data Vitals - Most Recent: Last Vital Signs Temp 37.2 C 07/05/17 16:00 Pulse 87 07/05/17 16:00 Resp 20 07/05/17 16:00 BP 130/73 07/05/17 16:00 Pulse Ox 94 L 07/05/17 16:00 Weight - Most Recent: 88.5 kg I&O - Last 24 Hours: Intake & Output 07/05/17 07/05/17 07/05/17 06:59 14:59 22:59 Intake Total 2373 1050 890 Output Total 1100 Balance 1273 1050 890 Lab Results Last 24 Hours: Laboratory Results - last 24 hr 07/05/17 07/05/17 Range/Units 05:40 05:40 WBC 17.22 H (4.0-11.0) K/uL RBC 3.75 L (4.50-5.90) M/uL Hgb 12.4 L (13.0-17.0) g/dL Hct 36.3 L (38.0-50.0) % MCV 96.8 (80.0-98.0) fL MCH 33.1 H (27.0-32.0) pg MCHC 34.2 (31.0-37.0) g/dL RDW Std Deviation 47.3 (28.0-62.0) fl RDW Coeff of Pratima 13 (11.0-15.0) % Plt Count 306 (150-400) K/uL MPV 9.60 (7.40-12.00) fL Add Manual Diff YES Neutrophils % (Manual) 89 H (48.0-80.0) % Band Neutrophils % 2 % Lymphocytes % (Manual) 5 L (16.0-40.0) % Monocytes % (Manual) 4 (0.0-15.0) % Nucleated RBC % 0.0 /100WBC Absolute Seg Neuts 15.3 Band Neutrophils # 0.3 Lymphocytes # (Manual) 0.9 Monocytes # (Manual) 0.7 Nucleated RBCs # 0 K/uL Sodium 137 (136-146) mmol/L Potassium 3.6 (3.5-5.1) mmol/L Chloride 110 (98-110) mmol/L Carbon Dioxide 20 L (21-31) mmol/L BUN 22 (6.0-23.0) mg/dL Creatinine 1.3 (0.6-1.5) mg/dL Est Cr Clr Drug Dosing 76.43 mL/min Estimated GFR (MDRD) > 60.0 ml/min Glucose 114 H (60-110) mg/dL Calcium 8.7 L (8.8-10.8) mg/dL Darshan Results Last 24 Hours: Microbiology 07/03/17 16:49 Aerobic Blood Culture - Preliminary Blood NO GROWTH AFTER 2 DAYS Anaerobic Blood Culture - Preliminary NO GROWTH AFTER 2 DAYS Med Orders - Current: Current Medications Acetaminophen (Tylenol) 650 mg PO Q4H PRN PRN Reason: Pain (Mild 1-3)/fever Last Admin: 07/05/17 11:42 Dose: 650 mg Enoxaparin Sodium (Lovenox) 40 mg SUBCUT DAILY [facility] Last Admin: 07/05/17 08:37 Dose: 40 mg Hydromorphone HCl (Dilaudid) 1 mg IVPUSH Q2H PRN PRN Reason: Pain (severe 7-10) Last Admin: 07/05/17 17:11 Dose: 1 mg Sodium Chloride (Normal Saline) 1,000 mls @ 125 mls/hr IV ASDIRECTED [facility] Last Admin: 07/05/17 14:01 Dose: 125 mls/hr Clindamycin Phosphate 600 mg/ (Premix) 50 mls @ 100 mls/hr IV Q6H [facility] Last Admin: 07/05/17 15:59 Dose: 100 mls/hr Ceftriaxone Sodium/Dextrose 1 (gm/ Premix) 50 mls @ 100 mls/hr IV Q24H [facility] Last Admin: 07/05/17 16:34 Dose: 100 mls/hr Pantoprazole Sodium 40 mg/ (Sodium Chloride) 10 mls @ 300 mls/hr IVPUSH DAILY [facility] Last Admin: 07/05/17 08:36 Dose: 300 mls/hr Ondansetron HCl (Zofran) 4 mg IVPUSH Q4H PRN PRN Reason: Nausea Tramadol HCl (Ultram) 100 mg PO Q4H PRN PRN Reason: Pain (moderate 4-6) Last Admin: 07/05/17 16:01 Dose: 100 mg Discontinued Medications Fentanyl (Sublimaze) 50 mcg IVPUSH ONETIME ONE Stop: 07/03/17 12:58 Last Admin: 07/03/17 13:13 Dose: 50 mcg Hydromorphone HCl (Dilaudid) 1 mg IVPUSH ONETIME ONE Stop: 07/03/17 15:44 Last Admin: 07/03/17 15:52 Dose: 1 mg Sodium Chloride (Normal Saline) 1,000 mls @ 999 mls/hr IV .Bolus ONE Stop: 07/03/17 12:51 Last Admin: 07/03/17 12:09 Dose: 999 mls/hr Piperacillin Sod/Tazobactam (Sod 4.5 gm/ Sodium Chloride) 100 mls @ 100 mls/hr IV ONETIME ONE Stop: 07/03/17 15:24 Last Admin: 07/03/17 14:31 Dose: 100 mls/hr Sodium Chloride (Normal Saline) 1,000 mls @ 999 mls/hr IV STAT ONE Stop: 07/03/17 15:25 Last Admin: 07/03/17 14:32 Dose: 999 mls/hr Metronidazole 500 mg/ Premix 100 mls @ 100 mls/hr IV QID [facility] Pantoprazole Sodium 40 mg/ (Sodium Chloride) 10 mls @ 300 mls/hr IVPUSH NOW ONE Stop: 07/04/17 10:15 Last Admin: 07/04/17 11:24 Dose: Not Given Pantoprazole Sodium 40 mg/ (Sodium Chloride) 10 mls @ 300 mls/hr IVPUSH NOW ONE Stop: 07/04/17 10:31 Last Admin: 07/04/17 11:30 Dose: Not Given Pantoprazole Sodium 40 mg/ (Sodium Chloride) 10 mls @ 300 mls/hr IVPUSH NOW ONE Stop: 07/04/17 11:31 Last Admin: 07/04/17 11:29 Dose: 300 mls/hr Ketorolac Tromethamine (Toradol) 30 mg IVPUSH ONETIME ONE Stop: 07/03/17 11:55 Last Admin: 07/03/17 12:10 Dose: 30 mg Methylprednisolone Sodium Succinate (Solu-Medrol) 125 mg IVPUSH ONETIME ONE Stop: 07/03/17 12:58 Last Admin: 07/03/17 13:17 Dose: 125 mg Methylprednisolone Sodium Succinate (Solu-Medrol) 125 mg IVPUSH ONETIME ONE Stop: 07/04/17 16:12 Last Admin: 07/04/17 16:27 Dose: 125 mg Ondansetron HCl (Zofran) 8 mg IVPUSH ONETIME ONE Stop: 07/03/17 11:55 Last Admin: 07/03/17 12:09 Dose: 8 mg Ondansetron HCl (Zofran) 4 mg IVPUSH ONETIME ONE Stop: 07/03/17 12:58 Last Admin: 07/03/17 13:15 Dose: 4 mg - Exam General: Alert, Oriented HEENT: Pupils Equal Neck: Supple, Trachea Midline, Other (mild swelling bilaterally neck) Lungs: Clear to Auscultation Cardiovascular: Regular Rate GI/Abdominal Exam: Normal Bowel Sounds Back Exam: Normal Inspection Extremities: Normal Inspection - Problem List Review Problem List Initiated/Reviewed/Updated: Yes - My Orders Last 24 Hours: My Active Orders 07/05/17 13:54 traMADol [Ultram] 100 mg PO Q4H PRN - Plan Plan:: 42-year-old male admitted with a left-sided submandibular abscess. #1. Submandibular mandibular abscess: -Dr. Hahn, ENT, did a I&D however did not send out cultures. -Continue IV clindamycin and Rocephin. White blood cell count did slightly decrease. We'll get a repeat CBC in the morning. -IV Dilaudid available for pain relief. -Patient continue to advance his diet as tolerated.he was able to tolerate some oral feeds today #2. Acute kidney injury secondary to dehydration: -BUN/creatinine are improving. Continue with normal saline at 125 cc/hour. <Obed Thomson - Last Filed: 07/08/17 07:57> - Patient Data Vitals - Most Recent: Last Vital Signs Temp 36.7 C 07/06/17 15:45 Pulse 70 07/06/17 15:45 Resp 16 07/06/17 15:45 BP 123/63 07/06/17 15:45 Pulse Ox 97 07/06/17 16:00 Darshan Results Last 24 Hours: Microbiology 07/03/17 16:49 Aerobic Blood Culture - Preliminary Blood NO GROWTH AFTER 4 DAYS Anaerobic Blood Culture - Preliminary NO GROWTH AFTER 4 DAYS Med Orders - Current: Current Medications Discontinued Medications Acetaminophen (Tylenol) 650 mg PO Q4H PRN PRN Reason: Pain (Mild 1-3)/fever Last Admin: 07/05/17 11:42 Dose: 650 mg Enoxaparin Sodium (Lovenox) 40 mg SUBCUT DAILY [facility] Last Admin: 07/06/17 09:06 Dose: Not Given Fentanyl (Sublimaze) 50 mcg IVPUSH ONETIME ONE Stop: 07/03/17 12:58 Last Admin: 07/03/17 13:13 Dose: 50 mcg Hydromorphone HCl (Dilaudid) 1 mg IVPUSH ONETIME ONE Stop: 07/03/17 15:44 Last Admin: 07/03/17 15:52 Dose: 1 mg Hydromorphone HCl (Dilaudid) 1 mg IVPUSH Q2H PRN PRN Reason: Pain (severe 7-10) Last Admin: 07/05/17 17:11 Dose: 1 mg Sodium Chloride (Normal Saline) 1,000 mls @ 999 mls/hr IV .Bolus ONE Stop: 07/03/17 12:51 Last Admin: 07/03/17 12:09 Dose: 999 mls/hr Piperacillin Sod/Tazobactam (Sod 4.5 gm/ Sodium Chloride) 100 mls @ 100 mls/hr IV ONETIME ONE Stop: 07/03/17 15:24 Last Admin: 07/03/17 14:31 Dose: 100 mls/hr Sodium Chloride (Normal Saline) 1,000 mls @ 999 mls/hr IV STAT ONE Stop: 07/03/17 15:25 Last Admin: 07/03/17 14:32 Dose: 999 mls/hr Sodium Chloride (Normal Saline) 1,000 mls @ 125 mls/hr IV ASDIRECTED [facility] Last Infusion: 07/06/17 16:00 Dose: 125 mls/hr Clindamycin Phosphate 600 mg/ (Premix) 50 mls @ 100 mls/hr IV Q6H [facility] Last Admin: 07/06/17 12:53 Dose: Not Given Ceftriaxone Sodium/Dextrose 1 (gm/ Premix) 50 mls @ 100 mls/hr IV Q24H [facility] Last Admin: 07/05/17 16:34 Dose: 100 mls/hr Metronidazole 500 mg/ Premix 100 mls @ 100 mls/hr IV QID [facility] Pantoprazole Sodium 40 mg/ (Sodium Chloride) 10 mls @ 300 mls/hr IVPUSH NOW ONE Stop: 07/04/17 10:15 Last Admin: 07/04/17 11:24 Dose: Not Given Pantoprazole Sodium 40 mg/ (Sodium Chloride) 10 mls @ 300 mls/hr IVPUSH DAILY [facility] Last Admin: 07/06/17 09:07 Dose: 300 mls/hr Pantoprazole Sodium 40 mg/ (Sodium Chloride) 10 mls @ 300 mls/hr IVPUSH NOW ONE Stop: 07/04/17 10:31 Last Admin: 07/04/17 11:30 Dose: Not Given Pantoprazole Sodium 40 mg/ (Sodium Chloride) 10 mls @ 300 mls/hr IVPUSH NOW ONE Stop: 07/04/17 11:31 Last Admin: 07/04/17 11:29 Dose: 300 mls/hr Ampicillin Sodium/Sulbactam (Sodium 3 gm/ Sodium Chloride) 100 mls @ 200 mls/ hr IV Q6H [facility] Last Admin: 07/06/17 01:20 Dose: 200 mls/hr Vancomycin HCl 1.5 gm/ Sodium (Chloride) 500 mls @ 250 mls/hr IV Q8H [facility] Last Infusion: 07/06/17 15:50 Dose: Infused Ampicillin Sodium/Sulbactam (Sodium 3 gm/ Sodium Chloride) 100 mls @ 200 mls/ hr IV Q6H [facility] Last Infusion: 07/06/17 13:41 Dose: Infused Iopamidol (Isovue Multipack-370 (76%)) 75 ml IVPUSH ONETIME STA Stop: 07/05/17 19:25 Last Admin: 07/05/17 19:25 Dose: 75 ml Ketorolac Tromethamine (Toradol) 30 mg IVPUSH ONETIME ONE Stop: 07/03/17 11:55 Last Admin: 07/03/17 12:10 Dose: 30 mg Ketorolac Tromethamine (Toradol) 30 mg IVPUSH Q6H PRN PRN Reason: Pain (severe 7-10) Last Admin: 07/06/17 12:54 Dose: 30 mg Methylprednisolone Sodium Succinate (Solu-Medrol) 125 mg IVPUSH ONETIME ONE Stop: 07/03/17 12:58 Last Admin: 07/03/17 13:17 Dose: 125 mg Methylprednisolone Sodium Succinate (Solu-Medrol) 125 mg IVPUSH ONETIME ONE Stop: 07/04/17 16:12 Last Admin: 07/04/17 16:27 Dose: 125 mg Methylprednisolone Sodium Succinate (Solu-Medrol) 125 mg IVPUSH ONETIME ONE Stop: 07/05/17 18:42 Last Admin: 07/05/17 18:48 Dose: 125 mg Ondansetron HCl (Zofran) 8 mg IVPUSH ONETIME ONE Stop: 07/03/17 11:55 Last Admin: 07/03/17 12:09 Dose: 8 mg Ondansetron HCl (Zofran) 4 mg IVPUSH ONETIME ONE Stop: 07/03/17 12:58 Last Admin: 07/03/17 13:15 Dose: 4 mg Ondansetron HCl (Zofran) 4 mg IVPUSH Q4H PRN PRN Reason: Nausea Tramadol HCl (Ultram) 100 mg PO Q4H PRN PRN Reason: Pain (moderate 4-6) Last Admin: 07/05/17 16:01 Dose: 100 mg Vancomycin HCl (Pharmacy To Dose - Vancomycin) 1 dose .XX ASDIRECTED [facility] - Free Text/Narrative Note: Dr. Chhaya Thomson notes: I have examined this patient and his data on the morning of this note. I agree with Dr. Russell's conclusions and plans.
[2017-07-05] MEDS ORDERED: methylPREDNISolone Sodium Succinate 125 MG/2 ML SDV IVPUSH ONE (18:41)
[2017-07-05] MEDS ORDERED: Iopamidol 755 MG/ML 500 ML Multipack Bottle IVPUSH STA (19:24)
[2017-07-05] MEDS: Ampicillin/Sulbactam Na 3 GM in Sodium Chloride 0.9% 100 ML IV SCH (19:34)
[2017-07-05] MEDS: Ketorolac 30 MG/ML SDV IVPUSH PRN (20:51)
[2017-07-05] MEDS: Vancomycin 1.5 GM in Sodium Chloride 0.9% 500 ML IV SCH (21:51)
--- NOTE | 2017-07-05 22:09 | PCM.CONSN ---
- General Info Date of Service: 07/05/17 Subjective Update: Subsequent to intraoral incision and drainage of left peritonsillar collection yesterday the patient's symptoms significantly improved. Mouth opening, swallowing and neck pain had significantly resolved till late this afternoon at which point he started complaining of increased odynophagia and slightly reduced mouth opening. At this point a contrast-enhanced CT scan was requested by the hospitalist. Owing to the report I was contacted. The patient does not report any shortness of breath or stridor or any breathing difficulties. - Review of Systems General: Reports: Fatigue HEENT: Reports: Other - Patient Data Vitals - Most Recent: Last Vital Signs Temp 36.4 C 07/05/17 19:50 Pulse 88 07/05/17 19:50 Resp 20 07/05/17 19:50 BP 134/63 07/05/17 19:50 Pulse Ox 97 07/05/17 19:50 Weight - Most Recent: 88.5 kg I&O - Last 24 Hours: Intake & Output 07/05/17 07/05/17 07/05/17 06:59 14:59 22:59 Intake Total 2373 1050 890 Output Total 1100 Balance 1273 1050 890 Lab Results Last 24 Hours: Laboratory Results - last 24 hr 07/05/17 07/05/17 Range/Units 05:40 05:40 WBC 17.22 H (4.0-11.0) K/uL RBC 3.75 L (4.50-5.90) M/uL Hgb 12.4 L (13.0-17.0) g/dL Hct 36.3 L (38.0-50.0) % MCV 96.8 (80.0-98.0) fL MCH 33.1 H (27.0-32.0) pg MCHC 34.2 (31.0-37.0) g/dL RDW Std Deviation 47.3 (28.0-62.0) fl RDW Coeff of Pratima 13 (11.0-15.0) % Plt Count 306 (150-400) K/uL MPV 9.60 (7.40-12.00) fL Add Manual Diff YES Neutrophils % (Manual) 89 H (48.0-80.0) % Band Neutrophils % 2 % Lymphocytes % (Manual) 5 L (16.0-40.0) % Monocytes % (Manual) 4 (0.0-15.0) % Nucleated RBC % 0.0 /100WBC Absolute Seg Neuts 15.3 Band Neutrophils # 0.3 Lymphocytes # (Manual) 0.9 Monocytes # (Manual) 0.7 Nucleated RBCs # 0 K/uL Sodium 137 (136-146) mmol/L Potassium 3.6 (3.5-5.1) mmol/L Chloride 110 (98-110) mmol/L Carbon Dioxide 20 L (21-31) mmol/L BUN 22 (6.0-23.0) mg/dL Creatinine 1.3 (0.6-1.5) mg/dL Est Cr Clr Drug Dosing 76.43 mL/min Estimated GFR (MDRD) > 60.0 ml/min Glucose 114 H (60-110) mg/dL Calcium 8.7 L (8.8-10.8) mg/dL Darshan Results Last 24 Hours: Microbiology 07/03/17 16:49 Aerobic Blood Culture - Preliminary Blood NO GROWTH AFTER 2 DAYS Anaerobic Blood Culture - Preliminary NO GROWTH AFTER 2 DAYS Med Orders - Current: Current Medications Acetaminophen (Tylenol) 650 mg PO Q4H PRN PRN Reason: Pain (Mild 1-3)/fever Last Admin: 07/05/17 11:42 Dose: 650 mg Enoxaparin Sodium (Lovenox) 40 mg SUBCUT DAILY [facility] Last Admin: 07/05/17 08:37 Dose: 40 mg Hydromorphone HCl (Dilaudid) 1 mg IVPUSH Q2H PRN PRN Reason: Pain (severe 7-10) Last Admin: 07/05/17 17:11 Dose: 1 mg Sodium Chloride (Normal Saline) 1,000 mls @ 125 mls/hr IV ASDIRECTED [facility] Last Admin: 07/05/17 14:01 Dose: 125 mls/hr Clindamycin Phosphate 600 mg/ (Premix) 50 mls @ 100 mls/hr IV Q6H [facility] Last Admin: 07/05/17 21:16 Dose: 100 mls/hr Pantoprazole Sodium 40 mg/ (Sodium Chloride) 10 mls @ 300 mls/hr IVPUSH DAILY [facility] Last Admin: 07/05/17 08:36 Dose: 300 mls/hr Ampicillin Sodium/Sulbactam (Sodium 3 gm/ Sodium Chloride) 100 mls @ 200 mls/ hr IV Q6H [facility] Last Admin: 07/05/17 19:34 Dose: 200 mls/hr Vancomycin HCl 1.5 gm/ Sodium (Chloride) 500 mls @ 250 mls/hr IV Q8H [facility] Last Admin: 07/05/17 21:51 Dose: 250 mls/hr Ketorolac Tromethamine (Toradol) 30 mg IVPUSH Q6H PRN PRN Reason: Pain (severe 7-10) Last Admin: 07/05/17 20:51 Dose: 30 mg Ondansetron HCl (Zofran) 4 mg IVPUSH Q4H PRN PRN Reason: Nausea Tramadol HCl (Ultram) 100 mg PO Q4H PRN PRN Reason: Pain (moderate 4-6) Last Admin: 07/05/17 16:01 Dose: 100 mg Vancomycin HCl (Pharmacy To Dose - Vancomycin) 1 dose .XX ASDIRECTED [facility] Discontinued Medications Fentanyl (Sublimaze) 50 mcg IVPUSH ONETIME ONE Stop: 07/03/17 12:58 Last Admin: 07/03/17 13:13 Dose: 50 mcg Hydromorphone HCl (Dilaudid) 1 mg IVPUSH ONETIME ONE Stop: 07/03/17 15:44 Last Admin: 07/03/17 15:52 Dose: 1 mg Sodium Chloride (Normal Saline) 1,000 mls @ 999 mls/hr IV .Bolus ONE Stop: 07/03/17 12:51 Last Admin: 07/03/17 12:09 Dose: 999 mls/hr Piperacillin Sod/Tazobactam (Sod 4.5 gm/ Sodium Chloride) 100 mls @ 100 mls/hr IV ONETIME ONE Stop: 07/03/17 15:24 Last Admin: 07/03/17 14:31 Dose: 100 mls/hr Sodium Chloride (Normal Saline) 1,000 mls @ 999 mls/hr IV STAT ONE Stop: 07/03/17 15:25 Last Admin: 07/03/17 14:32 Dose: 999 mls/hr Ceftriaxone Sodium/Dextrose 1 (gm/ Premix) 50 mls @ 100 mls/hr IV Q24H [facility] Last Admin: 07/05/17 16:34 Dose: 100 mls/hr Metronidazole 500 mg/ Premix 100 mls @ 100 mls/hr IV QID [facility] Pantoprazole Sodium 40 mg/ (Sodium Chloride) 10 mls @ 300 mls/hr IVPUSH NOW ONE Stop: 07/04/17 10:15 Last Admin: 07/04/17 11:24 Dose: Not Given Pantoprazole Sodium 40 mg/ (Sodium Chloride) 10 mls @ 300 mls/hr IVPUSH NOW ONE Stop: 07/04/17 10:31 Last Admin: 07/04/17 11:30 Dose: Not Given Pantoprazole Sodium 40 mg/ (Sodium Chloride) 10 mls @ 300 mls/hr IVPUSH NOW ONE Stop: 07/04/17 11:31 Last Admin: 07/04/17 11:29 Dose: 300 mls/hr Iopamidol (Isovue Multipack-370 (76%)) 75 ml IVPUSH ONETIME STA Stop: 07/05/17 19:25 Last Admin: 07/05/17 19:25 Dose: 75 ml Ketorolac Tromethamine (Toradol) 30 mg IVPUSH ONETIME ONE Stop: 07/03/17 11:55 Last Admin: 07/03/17 12:10 Dose: 30 mg Methylprednisolone Sodium Succinate (Solu-Medrol) 125 mg IVPUSH ONETIME ONE Stop: 07/03/17 12:58 Last Admin: 07/03/17 13:17 Dose: 125 mg Methylprednisolone Sodium Succinate (Solu-Medrol) 125 mg IVPUSH ONETIME ONE Stop: 07/04/17 16:12 Last Admin: 07/04/17 16:27 Dose: 125 mg Methylprednisolone Sodium Succinate (Solu-Medrol) 125 mg IVPUSH ONETIME ONE Stop: 07/05/17 18:42 Last Admin: 07/05/17 18:48 Dose: 125 mg Ondansetron HCl (Zofran) 8 mg IVPUSH ONETIME ONE Stop: 07/03/17 11:55 Last Admin: 07/03/17 12:09 Dose: 8 mg Ondansetron HCl (Zofran) 4 mg IVPUSH ONETIME ONE Stop: 07/03/17 12:58 Last Admin: 07/03/17 13:15 Dose: 4 mg - Exam General: Alert, Oriented HEENT: Other Neck: Other Skin: Warm, Dry, Intact Neurological: No New Focal Deficit Physical Findings Comments:: O/E: Oral cavity: Mild to moderate trismus(improved from yesterday); carious teeth and gingivitis as before. Left peritonsillar swelling significantly improved. Oropharynx: Left Tonsils seems to be pushed medially inferiorly Neck: Minimal induration in the left in the submental region more towards the left side of midline. This extends posteriorly towards the submandibular region. No significantly enlarged lymph nodes palpable. Nasal cavity: Normal Ears: Normal Consult PN Assessment/Plan POD#: 2 (1) Dental caries SNOMED Code(s): 35856728 Code(s): K02.9 - DENTAL CARIES, UNSPECIFIED Current Visit: Yes (2) Gingivitis SNOMED Code(s): 33439849 Code(s): K05.10 - CHRONIC GINGIVITIS, PLAQUE INDUCED Current Visit: Yes (3) Cellulitis of neck SNOMED Code(s): 95964597 Code(s): L03.221 - CELLULITIS OF NECK Current Visit: Yes (4) Cellulitis of parapharyngeal space SNOMED Code(s): 790396830 Code(s): J39.0 - RETROPHARYNGEAL AND PARAPHARYNGEAL ABSCESS Current Visit: Yes Problem List Initiated/Reviewed/Updated: Yes Plan: Assessment: Left peritonsillar collection with ? cellulitis ?collection off the left sub-lingual space. Plan: Contrast enhanced CT scan from today was discussed with the [facility] radiologist auditing control clerk. The collection superiorly in the left peritonsillar region appears to be a phlegmon. The more inferior collection in the left peritonsillar region and especially in the submaxillary space likely to be an evolving abscess. - Patient to be NPO by mouth after midnight -Will consider incision and drainage of the inferior aspect of the left peritonsillar collection and the submaxillary space - This case was discussed in detail with the anesthesiologist auditing control clerk today Dr. Kemp. Owing to trismus intra oral intubation might be a challenge and hence management of airway could be a potential issue. This was also discussed with the patient in detail. He will be evaluated by the anesthesia team in detail prior to any formulating any surgical plans. - Continue IV antibiotics. - Discussed with Dr. Dias - hospitalist auditing control clerk.
[2017-07-06] MEDS: Ampicillin/Sulbactam Na 3 GM in Sodium Chloride 0.9% 100 ML IV SCH ×3 (01:20→12:56)
[2017-07-06] MEDS: Sodium Chloride 0.9% 1,000 ML IV SCH ×2 (02:47→12:58)
[2017-07-06] MEDS: Clindamycin Phosphate in D5W 600 MG in Premix Bag 50 BAG IV SCH ×6 (03:40→12:53)
[2017-07-06] MEDS: Vancomycin 1.5 GM in Sodium Chloride 0.9% 500 ML IV SCH ×2 (04:57→13:47)
[2017-07-06 05:26] LABS: CHLORIDE,CL 111 mmol/L (98-110); SODIUM,NA 140 mmol/L (136-146)
[2017-07-06] MEDS: Enoxaparin 40 MG/0.4 ML Syringe SUBCUT SCH (09:06)
[2017-07-06] MEDS: Pantoprazole 40 MG in Sodium Chloride 0.9% 10 ML IVPUSH SCH (09:07)
--- NOTE | 2017-07-06 09:24 | PCM.SN ---
- Free Text/Narrative Note: Patient examined by myself and Dr. Quezada. Based upon available resources for airway management we recommend transfer of care to a higher level. We have limited resources in personnel and equipment (do not have a fiberoptic scope) available. Since the patient condition is not emergent, but urgent, we make this recommendation. Dr. Hahn was called with this assessment. She provided detailed description of patient's condition and preceding course as well as possible further care.
--- NOTE | 2017-07-06 09:25 | PCM.CONSN ---
- General Info Date of Service: 07/06/17 Subjective Update: Since seen yesterday night patient reports improved pain in his neck. Overnight he was given a dose of Toradol. No complaint of breathing difficulties or stridor. Does report odynophagia. Overall symptoms have improved since admission however not resolved. - Patient Data Vitals - Most Recent: Last Vital Signs Temp 36.4 C 07/06/17 07:44 Pulse 70 07/06/17 07:44 Resp 19 07/06/17 07:44 BP 116/76 07/06/17 07:44 Pulse Ox 96 07/06/17 07:44 Weight - Most Recent: 89.5 kg I&O - Last 24 Hours: Intake & Output 07/05/17 07/06/17 07/06/17 22:59 06:59 14:59 Intake Total 1040 2740 600 Output Total 2300 Balance 1040 440 600 Lab Results Last 24 Hours: Laboratory Results - last 24 hr 07/06/17 07/06/17 Range/Units 04:35 04:35 WBC 15.12 H (4.0-11.0) K/uL RBC 3.90 L (4.50-5.90) M/uL Hgb 13.0 (13.0-17.0) g/dL Hct 37.6 L (38.0-50.0) % MCV 96.4 (80.0-98.0) fL MCH 33.3 H (27.0-32.0) pg MCHC 34.6 (31.0-37.0) g/dL RDW Std Deviation 47.3 (28.0-62.0) fl RDW Coeff of Pratima 14 (11.0-15.0) % Plt Count 311 (150-400) K/uL MPV 9.90 (7.40-12.00) fL Add Manual Diff YES Neutrophils % (Manual) 83 H (48.0-80.0) % Band Neutrophils % 2 % Lymphocytes % (Manual) 10 L (16.0-40.0) % Monocytes % (Manual) 5 (0.0-15.0) % Nucleated RBC % 0.0 /100WBC Absolute Seg Neuts 12.5 Band Neutrophils # 0.3 Lymphocytes # (Manual) 1.5 Monocytes # (Manual) 0.8 Nucleated RBCs # 0 K/uL Sodium 140 (136-146) mmol/L Potassium 3.3 L (3.5-5.1) mmol/L Chloride 111 H (98-110) mmol/L Carbon Dioxide 21 (21-31) mmol/L BUN 18 (6.0-23.0) mg/dL Creatinine 1.1 (0.6-1.5) mg/dL Est Cr Clr Drug Dosing 90.33 mL/min Estimated GFR (MDRD) > 60.0 ml/min Glucose 124 H (60-110) mg/dL Calcium 8.5 L (8.8-10.8) mg/dL Darshan Results Last 24 Hours: Microbiology 07/03/17 16:49 Aerobic Blood Culture - Preliminary Blood NO GROWTH AFTER 2 DAYS Anaerobic Blood Culture - Preliminary NO GROWTH AFTER 2 DAYS Med Orders - Current: Current Medications Acetaminophen (Tylenol) 650 mg PO Q4H PRN PRN Reason: Pain (Mild 1-3)/fever Last Admin: 07/05/17 11:42 Dose: 650 mg Enoxaparin Sodium (Lovenox) 40 mg SUBCUT DAILY [facility] Last Admin: 07/06/17 09:06 Dose: Not Given Hydromorphone HCl (Dilaudid) 1 mg IVPUSH Q2H PRN PRN Reason: Pain (severe 7-10) Last Admin: 07/05/17 17:11 Dose: 1 mg Sodium Chloride (Normal Saline) 1,000 mls @ 125 mls/hr IV ASDIRECTED [facility] Last Admin: 07/06/17 02:47 Dose: 125 mls/hr Clindamycin Phosphate 600 mg/ (Premix) 50 mls @ 100 mls/hr IV Q6H [facility] Last Admin: 07/06/17 03:40 Dose: 100 mls/hr Pantoprazole Sodium 40 mg/ (Sodium Chloride) 10 mls @ 300 mls/hr IVPUSH DAILY [facility] Last Admin: 07/06/17 09:07 Dose: 300 mls/hr Vancomycin HCl 1.5 gm/ Sodium (Chloride) 500 mls @ 250 mls/hr IV Q8H [facility] Last Infusion: 07/06/17 07:17 Dose: Infused Ampicillin Sodium/Sulbactam (Sodium 3 gm/ Sodium Chloride) 100 mls @ 200 mls/ hr IV Q6H [facility] Last Infusion: 07/06/17 07:50 Dose: Infused Ketorolac Tromethamine (Toradol) 30 mg IVPUSH Q6H PRN PRN Reason: Pain (severe 7-10) Last Admin: 07/05/17 20:51 Dose: 30 mg Ondansetron HCl (Zofran) 4 mg IVPUSH Q4H PRN PRN Reason: Nausea Tramadol HCl (Ultram) 100 mg PO Q4H PRN PRN Reason: Pain (moderate 4-6) Last Admin: 07/05/17 16:01 Dose: 100 mg Vancomycin HCl (Pharmacy To Dose - Vancomycin) 1 dose .XX ASDIRECTED [facility] Discontinued Medications Fentanyl (Sublimaze) 50 mcg IVPUSH ONETIME ONE Stop: 07/03/17 12:58 Last Admin: 07/03/17 13:13 Dose: 50 mcg Hydromorphone HCl (Dilaudid) 1 mg IVPUSH ONETIME ONE Stop: 07/03/17 15:44 Last Admin: 07/03/17 15:52 Dose: 1 mg Sodium Chloride (Normal Saline) 1,000 mls @ 999 mls/hr IV .Bolus ONE Stop: 07/03/17 12:51 Last Admin: 07/03/17 12:09 Dose: 999 mls/hr Piperacillin Sod/Tazobactam (Sod 4.5 gm/ Sodium Chloride) 100 mls @ 100 mls/hr IV ONETIME ONE Stop: 07/03/17 15:24 Last Admin: 07/03/17 14:31 Dose: 100 mls/hr Sodium Chloride (Normal Saline) 1,000 mls @ 999 mls/hr IV STAT ONE Stop: 07/03/17 15:25 Last Admin: 07/03/17 14:32 Dose: 999 mls/hr Ceftriaxone Sodium/Dextrose 1 (gm/ Premix) 50 mls @ 100 mls/hr IV Q24H [facility] Last Admin: 07/05/17 16:34 Dose: 100 mls/hr Metronidazole 500 mg/ Premix 100 mls @ 100 mls/hr IV QID [facility] Pantoprazole Sodium 40 mg/ (Sodium Chloride) 10 mls @ 300 mls/hr IVPUSH NOW ONE Stop: 07/04/17 10:15 Last Admin: 07/04/17 11:24 Dose: Not Given Pantoprazole Sodium 40 mg/ (Sodium Chloride) 10 mls @ 300 mls/hr IVPUSH NOW ONE Stop: 07/04/17 10:31 Last Admin: 07/04/17 11:30 Dose: Not Given Pantoprazole Sodium 40 mg/ (Sodium Chloride) 10 mls @ 300 mls/hr IVPUSH NOW ONE Stop: 07/04/17 11:31 Last Admin: 07/04/17 11:29 Dose: 300 mls/hr Ampicillin Sodium/Sulbactam (Sodium 3 gm/ Sodium Chloride) 100 mls @ 200 mls/ hr IV Q6H [facility] Last Admin: 07/06/17 01:20 Dose: 200 mls/hr Iopamidol (Isovue Multipack-370 (76%)) 75 ml IVPUSH ONETIME STA Stop: 07/05/17 19:25 Last Admin: 07/05/17 19:25 Dose: 75 ml Ketorolac Tromethamine (Toradol) 30 mg IVPUSH ONETIME ONE Stop: 07/03/17 11:55 Last Admin: 07/03/17 12:10 Dose: 30 mg Methylprednisolone Sodium Succinate (Solu-Medrol) 125 mg IVPUSH ONETIME ONE Stop: 07/03/17 12:58 Last Admin: 07/03/17 13:17 Dose: 125 mg Methylprednisolone Sodium Succinate (Solu-Medrol) 125 mg IVPUSH ONETIME ONE Stop: 07/04/17 16:12 Last Admin: 07/04/17 16:27 Dose: 125 mg Methylprednisolone Sodium Succinate (Solu-Medrol) 125 mg IVPUSH ONETIME ONE Stop: 07/05/17 18:42 Last Admin: 07/05/17 18:48 Dose: 125 mg Ondansetron HCl (Zofran) 8 mg IVPUSH ONETIME ONE Stop: 07/03/17 11:55 Last Admin: 07/03/17 12:09 Dose: 8 mg Ondansetron HCl (Zofran) 4 mg IVPUSH ONETIME ONE Stop: 07/03/17 12:58 Last Admin: 07/03/17 13:15 Dose: 4 mg - Exam General: Alert, Oriented HEENT: Other Neck: Other Skin: Warm, Dry, Intact Neurological: No New Focal Deficit Psy/Mental Status: Alert, Normal Affect, Normal Mood Physical Findings Comments:: On examination: Oral cavity: Trismus -grade 2. Dental caries and gingivitis as before. Floor of mouth normal. Left peritonsillar edema improved. Purulence expressed from the previous site of incision and drainage. Oropharynx: Inferior aspect of left tonsil pushed medially. Neck: Normal range of motion movements. Swelling/induration in the left submental/submandibular area. Nose: Normal Ears: Normal Consult PN Assessment/Plan (1) Dental caries SNOMED Code(s): 86958714 Code(s): K02.9 - DENTAL CARIES, UNSPECIFIED Current Visit: Yes (2) Gingivitis SNOMED Code(s): 25943958 Code(s): K05.10 - CHRONIC GINGIVITIS, PLAQUE INDUCED Current Visit: Yes (3) Cellulitis of neck SNOMED Code(s): 82641264 Code(s): L03.221 - CELLULITIS OF NECK Current Visit: Yes (4) Cellulitis of parapharyngeal space SNOMED Code(s): 930046243 Code(s): J39.0 - RETROPHARYNGEAL AND PARAPHARYNGEAL ABSCESS Current Visit: Yes (5) Peritonsillar abscess SNOMED Code(s): 56169997 Code(s): J36 - PERITONSILLAR ABSCESS Current Visit: Yes (6) Submandibular abscess SNOMED Code(s): 17660442 Code(s): K12.2 - CELLULITIS AND ABSCESS OF MOUTH Current Visit: Yes Problem List Initiated/Reviewed/Updated: Yes My Orders Last 24 Hours: Plan: - Formal incision and drainage of the residual abscess in the inferior aspect of the left peritonsillar space in the submandibular space is required. This was discussed in detail with the patient. This was also discussed with the research program manager providers at this hospital - Dr Kemp and Dr Quezada. Owing to the deep neck space infection and trismus, orotracheal intubation and management of airway is a very high risk procedure and we recommend transferring him to higher Level of Care. This Was Discussed with the Patient and the Hospitalist Team. - Recommend stopping Clindamycin since patient is receiving Unasyn and Vancomycin
[2017-07-06] MEDS: Ketorolac 30 MG/ML SDV IVPUSH PRN (12:54)
--- NOTE | 2017-07-06 14:58 | CT ---
EXAM DATE: 07/03/17 PATIENT'S AGE: 42 Patient: KULDEEP CARLOS Facility: [place], [place] Site . Site : [id number] Study: CT ST Neck [id number]/6/2017 7:35:51 PM Ordering Physician: Alix Coronado Final Report: INDICATION: Peritonsillar abscess. TECHNIQUE: CT soft tissues of the neck was acquired with IV contrast. The patient is scanned from the skull base to the thoracic inlet. The study is compared to prior study from July 03, 2017. FINDINGS: There is a large peripherally enhancing fluid collection in the left palatine tonsil that measures 3.1 cm in transverse, 2 cm in AP dimension. The fluid collection extends caudally and into these left sublingual space were there is a 2nd fluid collection measuring 3.4 x 1.6 cm. The superior-inferior dimension of the fluid collection is 5.7 cm. There is resultant narrowing of the oral airway which is not significantly changed from the prior study. Multiple enlarged upper cervical chain lymph nodes likely reactive in nature. There is effacement of the left vallecula due to regional inflammatory change. Mild scattered degenerative changes of the cervical spine. The submandibular, parotid and submandibular glands appear within normal limits. Posterior fossa structures appear within normal limits. IMPRESSION: 1. Better visualized large bilobed left peritonsillar abscess that now extends into the left sub mandibular space. Grossly the sublingual component appears better defined and slightly larger. There is resultant stable narrowing of the oral airway. 2. Multiple enlarged cervical chain lymph nodes likely reactive in nature. 3. Preliminary results were called to Dr. Dias at 2005 hours Dictated by Jamarcus Jose MD @ 07/05/2017 8:08:19 PM Dictated by: Jamarcus Jose MD @ 07/05/2017 20:08:33 (Electronic Signature) Report Signed by Proxy. [facility] CENTERKiara
--- NOTE | 2017-07-06 15:36 | PCM.DCSUM1 ---
Discharge Summary - Hospital Course Free Text/Narrative:: Discharge summary: Admitting diagnosis: #1. Submandibular abscess #2. Acute kidney injury secondary to dehydration Discharge diagnoses/transfer diagnoses: #1. Left peritonsillar collection likely etiologies cellulitis versus collection /deep tissue infection of left sublingual space #2. Evolving abscess of left submaxillary space #3. She requiring higher level of care secondary to inability of transferring site to intubate and perform required procedure. #4. Patient on IV vancomycin and IV Unasyn. Patient on Dilaudid and Toradol for pain control. Patient received 2 doses of Solu-Medrol secondary to swelling. Consultations: Dr. Hahn ENT Procedures: I&D by Dr. Hahn ENT Hospitalization course: Patient was admitted on 07/03/2017 secondary to submandibular left-sided swelling and acute pain. Patient was assessed in the ER by ENT who performed an I&D got scant blood and minimal pus. Patient was put on IV clindamycin given Solu- Medrol and pain medications. Initially it was felt the patient would do well on this intervention. From 07/04/2017-07/05/2017 patient seemed to do quite well, he was able to take by mouth and seem to be progression in the right direction with no febrile events no respiratory compromise, decreased swelling and decreased pain. However on 07/05/2017 in the evening patient started to decompensate towards the evening started to have worsening swelling on the left submandibular side pain 8 out of 10 difficulty swallowing. Patient's respiratory status was not compromised but there was a fear of possible imminent compromise. A immediate dose of Solu-Medrol was given along with pain control and a soft tissue neck CT was done. Patient was also then started on IV Unasyn and IV vancomycin. Dr. Hahn, ENT was then reconsulted who after assessing the CT of the neck felt that there was a reaccumulation/evolving abscess along the submaxillary side. She wanted to do an I&D however after speaking with anesthesiology it was felt by anesthesiology that they would not be able to safely intubate the patient here at our facility that the patient required higher level of care. Patient still is nothing by mouth at this point in time, Dr. Hahn has spoken with ENT in [facility]. The patient shall receive higher level care at [place]. Disposition on discharge: Transfer to [facility], [place] Condition on discharge: Patient is stable, afebrile, hemodynamically stable with no airway compromise on room air. Patient is nothing by mouth for possible procedure receiving IV antibiotics vancomycin and Unasyn along with pain control. Medications on transfer: IV vancomycin, IV Unasyn, pain control with tramadol and Dilaudid - Discharge Data Discharge Date: 07/06/17 Discharge Disposition: DC/Tfer to Acute Hospital 02 Condition: Stable - Discharge Diagnosis/Problem(s) (1) Peritonsillar abscess SNOMED Code(s): 01970624 ICD Code: J36 - PERITONSILLAR ABSCESS Status: Acute Priority: High Current Visit: Yes (2) Submandibular abscess SNOMED Code(s): 83303028 ICD Code: K12.2 - CELLULITIS AND ABSCESS OF MOUTH Status: Acute Priority : High Current Visit: Yes - Patient Instructions Diet: NPO (NPO secondary to possible surgical intervention) Activity: As Tolerated Driving: Do Not Drive - Discharge Plan Home Medications: Home Meds Acetaminophen/HYDROcodone [Hardin 325-7.5 MG] 1 tab PO Q4HR PRN 07/03/17 [History ] Cephalexin 500 mg PO TID 07/03/17 [History] Acetaminophen [Tylenol] 650 mg PO Q4H PRN #0 tablet 07/06/17 [Rx] Ampicillin/Sulbactam Na [Unasyn] 3 gm IV Q6H vial 07/06/17 [Rx] Enoxaparin [Lovenox] 40 mg SUBCUT DAILY syringe 07/06/17 [Rx] Ketorolac [Toradol] 30 mg IVPUSH Q6H PRN #0 vial 07/06/17 [Rx] Ondansetron [Zofran] 4 mg IVPUSH Q4H PRN #0 vial 07/06/17 [Rx] Pantoprazole [ProTONIX IV] 40 mg IVPUSH DAILY vial 07/06/17 [Rx] Vancomycin 1.5 gm IV Q8H sdv 07/06/17 [Rx] Vancomycin Pharmacy to Dose [Pharmacy to Dose - Vancomycin] 1 dose .XX ASDIRECTED each 07/06/17 [Rx] traMADol [Ultram] 100 mg PO Q4H PRN #0 tablet 07/06/17 [Rx] - Discharge Summary/Plan Comment DC Time >30 min.: No - Patient Data Vitals - Most Recent: Last Vital Signs Temp 37.1 C 07/06/17 12:00 Pulse 82 07/06/17 12:00 Resp 19 07/06/17 12:00 BP 120/68 07/06/17 12:00 Pulse Ox 96 07/06/17 12:00 Weight - Most Recent: 89.5 kg I&O - Last 24 hours: Intake & Output 07/06/17 07/06/17 07/06/17 06:59 14:59 22:59 Intake Total 2740 700 Output Total 2300 Balance 440 700 Lab Results - Last 24 hrs: Laboratory Results - last 24 hr 07/06/17 07/06/17 Range/Units 04:35 04:35 WBC 15.12 H (4.0-11.0) K/uL RBC 3.90 L (4.50-5.90) M/uL Hgb 13.0 (13.0-17.0) g/dL Hct 37.6 L (38.0-50.0) % MCV 96.4 (80.0-98.0) fL MCH 33.3 H (27.0-32.0) pg MCHC 34.6 (31.0-37.0) g/dL RDW Std Deviation 47.3 (28.0-62.0) fl RDW Coeff of Pratima 14 (11.0-15.0) % Plt Count 311 (150-400) K/uL MPV 9.90 (7.40-12.00) fL Add Manual Diff YES Neutrophils % (Manual) 83 H (48.0-80.0) % Band Neutrophils % 2 % Lymphocytes % (Manual) 10 L (16.0-40.0) % Monocytes % (Manual) 5 (0.0-15.0) % Nucleated RBC % 0.0 /100WBC Absolute Seg Neuts 12.5 Band Neutrophils # 0.3 Lymphocytes # (Manual) 1.5 Monocytes # (Manual) 0.8 Nucleated RBCs # 0 K/uL Sodium 140 (136-146) mmol/L Potassium 3.3 L (3.5-5.1) mmol/L Chloride 111 H (98-110) mmol/L Carbon Dioxide 21 (21-31) mmol/L BUN 18 (6.0-23.0) mg/dL Creatinine 1.1 (0.6-1.5) mg/dL Est Cr Clr Drug Dosing 90.33 mL/min Estimated GFR (MDRD) > 60.0 ml/min Glucose 124 H (60-110) mg/dL Calcium 8.5 L (8.8-10.8) mg/dL [facility] Results - Last 24 hrs: Microbiology 07/03/17 16:49 Aerobic Blood Culture - Preliminary Blood NO GROWTH AFTER 2 DAYS Anaerobic Blood Culture - Preliminary NO GROWTH AFTER 2 DAYS Med Orders - Current: Current Medications Acetaminophen (Tylenol) 650 mg PO Q4H PRN PRN Reason: Pain (Mild 1-3)/fever Last Admin: 07/05/17 11:42 Dose: 650 mg Enoxaparin Sodium (Lovenox) 40 mg SUBCUT DAILY [facility] Last Admin: 07/06/17 09:06 Dose: Not Given Hydromorphone HCl (Dilaudid) 1 mg IVPUSH Q2H PRN PRN Reason: Pain (severe 7-10) Last Admin: 07/05/17 17:11 Dose: 1 mg Sodium Chloride (Normal Saline) 1,000 mls @ 125 mls/hr IV ASDIRECTED [facility] Last Admin: 07/06/17 12:58 Dose: 125 mls/hr Pantoprazole Sodium 40 mg/ (Sodium Chloride) 10 mls @ 300 mls/hr IVPUSH DAILY [facility] Last Admin: 07/06/17 09:07 Dose: 300 mls/hr Vancomycin HCl 1.5 gm/ Sodium (Chloride) 500 mls @ 250 mls/hr IV Q8H [facility] Last Admin: 07/06/17 13:47 Dose: 250 mls/hr Ampicillin Sodium/Sulbactam (Sodium 3 gm/ Sodium Chloride) 100 mls @ 200 mls/ hr IV Q6H [facility] Last Infusion: 07/06/17 13:41 Dose: Infused Ketorolac Tromethamine (Toradol) 30 mg IVPUSH Q6H PRN PRN Reason: Pain (severe 7-10) Last Admin: 07/06/17 12:54 Dose: 30 mg Ondansetron HCl (Zofran) 4 mg IVPUSH Q4H PRN PRN Reason: Nausea Tramadol HCl (Ultram) 100 mg PO Q4H PRN PRN Reason: Pain (moderate 4-6) Last Admin: 07/05/17 16:01 Dose: 100 mg Vancomycin HCl (Pharmacy To Dose - Vancomycin) 1 dose .XX ASDIRECTED [facility] Discontinued Medications Fentanyl (Sublimaze) 50 mcg IVPUSH ONETIME ONE Stop: 07/03/17 12:58 Last Admin: 07/03/17 13:13 Dose: 50 mcg Hydromorphone HCl (Dilaudid) 1 mg IVPUSH ONETIME ONE Stop: 07/03/17 15:44 Last Admin: 07/03/17 15:52 Dose: 1 mg Sodium Chloride (Normal Saline) 1,000 mls @ 999 mls/hr IV .Bolus ONE Stop: 07/03/17 12:51 Last Admin: 07/03/17 12:09 Dose: 999 mls/hr Piperacillin Sod/Tazobactam (Sod 4.5 gm/ Sodium Chloride) 100 mls @ 100 mls/hr IV ONETIME ONE Stop: 07/03/17 15:24 Last Admin: 07/03/17 14:31 Dose: 100 mls/hr Sodium Chloride (Normal Saline) 1,000 mls @ 999 mls/hr IV STAT ONE Stop: 07/03/17 15:25 Last Admin: 07/03/17 14:32 Dose: 999 mls/hr Clindamycin Phosphate 600 mg/ (Premix) 50 mls @ 100 mls/hr IV Q6H [facility] Last Admin: 07/06/17 12:53 Dose: Not Given Ceftriaxone Sodium/Dextrose 1 (gm/ Premix) 50 mls @ 100 mls/hr IV Q24H [facility] Last Admin: 07/05/17 16:34 Dose: 100 mls/hr Metronidazole 500 mg/ Premix 100 mls @ 100 mls/hr IV QID [facility] Pantoprazole Sodium 40 mg/ (Sodium Chloride) 10 mls @ 300 mls/hr IVPUSH NOW ONE Stop: 07/04/17 10:15 Last Admin: 07/04/17 11:24 Dose: Not Given Pantoprazole Sodium 40 mg/ (Sodium Chloride) 10 mls @ 300 mls/hr IVPUSH NOW ONE Stop: 07/04/17 10:31 Last Admin: 07/04/17 11:30 Dose: Not Given Pantoprazole Sodium 40 mg/ (Sodium Chloride) 10 mls @ 300 mls/hr IVPUSH NOW ONE Stop: 07/04/17 11:31 Last Admin: 07/04/17 11:29 Dose: 300 mls/hr Ampicillin Sodium/Sulbactam (Sodium 3 gm/ Sodium Chloride) 100 mls @ 200 mls/ hr IV Q6H [facility] Last Admin: 07/06/17 01:20 Dose: 200 mls/hr Iopamidol (Isovue Multipack-370 (76%)) 75 ml IVPUSH ONETIME STA Stop: 07/05/17 19:25 Last Admin: 07/05/17 19:25 Dose: 75 ml Ketorolac Tromethamine (Toradol) 30 mg IVPUSH ONETIME ONE Stop: 07/03/17 11:55 Last Admin: 07/03/17 12:10 Dose: 30 mg Methylprednisolone Sodium Succinate (Solu-Medrol) 125 mg IVPUSH ONETIME ONE Stop: 07/03/17 12:58 Last Admin: 07/03/17 13:17 Dose: 125 mg Methylprednisolone Sodium Succinate (Solu-Medrol) 125 mg IVPUSH ONETIME ONE Stop: 07/04/17 16:12 Last Admin: 07/04/17 16:27 Dose: 125 mg Methylprednisolone Sodium Succinate (Solu-Medrol) 125 mg IVPUSH ONETIME ONE Stop: 07/05/17 18:42 Last Admin: 07/05/17 18:48 Dose: 125 mg Ondansetron HCl (Zofran) 8 mg IVPUSH ONETIME ONE Stop: 07/03/17 11:55 Last Admin: 07/03/17 12:09 Dose: 8 mg Ondansetron HCl (Zofran) 4 mg IVPUSH ONETIME ONE Stop: 07/03/17 12:58 Last Admin: 07/03/17 13:15 Dose: 4 mg *Q Meaningful Use (DIS) - VTE *Q VTE Criteria *Q: - Stroke *Q Stroke Criteria *Q: - AMI *Q AMI Criteria *Q:
[2017-07-06 17:48] VITALS: BP 123/63
== END 2017-07-06 16:00 | DRG 133 ==
LOC: MW.ED 11:28 → MW.MS 15:46
PROVIDERS: ADMIT Family Medicine; ATTEND Family Medicine
PROC: 0C9P0ZZ Drainage of Tonsils, Open Approach (ICD-10-PCS; principal; 2017-07-04)
DX: J36 Peritonsillar abscess (principal); K12.2 Cellulitis and abscess of mouth; N17.9 Acute kidney failure, unspecified; E86.0 Dehydration; R13.10 Dysphagia, unspecified; K02.9 Dental caries, unspecified; K05.10 Chronic gingivitis, plaque induced; F17.200 Nicotine dependence, unspecified, uncomplicated; Z88.8 Allergy status to other drugs, medicaments and biological substances; Z79.899 Other long term (current) drug therapy
CPT/HCPCS: 36415; 70490; 70490-26; 70491; 70491-26; 80048; 80053; 83605; 85025; 87040; 96361; 96365; 96375; 96376; 99284; 99285-25; A9270-GY; C9113; J0295; J0696; J1170; J1650; J1885; J2405; J2543; J2930; J3010; J3370; J7030; J7040; Q9967